=== PATIENT | male | born 1960 | race Caucasian/White ===

== ENCOUNTER 2020-03-24 07:52 | Outpatient (CLI) | payer OTHER, SELFPAY ==
--- NOTE | 2020-03-24 08:05 | CT_ITS ---
WS: [id number] CT CHEST TECHNIQUE: Noncontrast CT of the chest with coronal and sagittal reformatted images. CLINICAL INFORMATION: LUNG NODULE COMPARISON: CT chest and DLP: 881.[address] scans at [facility] use at least one of these dose optimization techniques: automat ed exposure control; mA and/or kV adjustment per patient size (includes targeted exams where dose is matched to clinical indication); or iterative reconstruction. FINDINGS: Mild chronic emphysematous changes. No acute pulmonary infiltrates. No consolidation or pleural fluid . Previously described pulmonary nodule in the left lower lobe appears to represent a mucous plug tod ay and is aerated centrally. This is unchanged in size compared to previous. Focal pleural thickening left lower lobe. No other suspicious pulmonary parenchymal opacities. No new nodules. No mediastinal or hilar lymphadenopathy. Normal thyroid gland. No axillary lymphadenopathy. Adrenal glands are normal. Partially visualized cystic lesion right hepatic lobe is enlarged compared to previous measuring 3.3 x 2.5 CM. This can be further evaluated with ultrasound. Hypertrophic bravo ges thoracic spine. CT/CT chest wo con [id number] IMPRESSION: 1. Previously described 8 mm pulmonary nodule left lower lobe actually represe nts a mucous plug which is centrally aerated today. 2. No new suspicious pulmonary parenchymal opacities. 3. Partially visualized cystic lesion right hepatic lobe measuring 2.5 x 3.3 c m has increased in size from previous. This can be further evaluated with ultra sound. This is only partially included. 4. Diffuse fatty infiltration of the liver. 5. No mediastinal or hilar lymphadenopathy.
== END 2020-03-24 07:53 | disposition home or self-care (01) ==
LOC: RADWPI 07:57
PROVIDERS: PCP Internal Medicine; Visit Provider Internal Medicine
DX: R91.1 Solitary pulmonary nodule (principal); K76.0 Fatty (change of) liver, not elsewhere classified; K76.9 Liver disease, unspecified
CPT/HCPCS: 71250

== ENCOUNTER 2020-04-08 08:48 | Outpatient (CLI) | payer OTHER, SELFPAY ==
--- NOTE | 2020-04-08 08:48 | US_ITS ---
WS: [id number] ULTRASOUND ABDOMEN LIMITED CLINICAL INFORMATION: LIVER CYST COMPARISON: CT 2013 and 03/24 2020 FINDINGS: Liver Size: Enlarged Craniocaudal length: 18.6 cm. Echogenicity: Fatty infiltration Surface nodularity: None. Mass (size and location): Right hepatic cysts the largest measuring 3.6 x 3.2 x 4.1 cm. Bile ducts Intrahepatic ducts: Normal. Common bile duct diameter: 1.8 cm. Gallbladder Normal. Gallstones: None. Gallbladder sludge: None. Gallbladder wall thickening: None. Pericholecystic fluid: None. Sonographic Potts sign: Absent. Pancreas Normal as visualized. Right kidney: Normal. Hydronephrosis: None. Size: 12.5 cm x 5.1 cm x 5.7 cm. Abdominal aorta and IVC Visualized portions are normal. Ascites: None. US/US liver [id number] IMPRESSION: 1. Hepatomegaly with diffuse fatty infiltration. 2. Right hepatic cysts the largest measuring 3.6 x 3.2 x 4.1 cm. 3. Gallbladder is normal. 4. Normal common bile duct. 5. No hydronephrosis in right kidney.
== END 2020-04-08 08:49 | disposition home or self-care (01) ==
LOC: RADOUTREAD 11:03
PROVIDERS: PCP Internal Medicine; Visit Provider Internal Medicine
DX: K76.89 Other specified diseases of liver (principal); R16.0 Hepatomegaly, not elsewhere classified; K76.0 Fatty (change of) liver, not elsewhere classified
CPT/HCPCS: 76705

== ENCOUNTER 2023-03-14 09:47 | Emergency (ER) | payer OTHER, SELFPAY ==
[2023-03-14 09:55] VITALS: BP 154/90; PULSE 93; RESP 16; TEMP 36.4; O2SAT 98; BMI 24.7
--- NOTE | 2023-03-14 10:04 | USCV_ITS ---
Willis Hawk Age: 62 Gender: M : 1960 Exam Date: 03/14/2023 10:24 Ordering Phys: Qiana Moeller MD Technologist: HYACINTH [place] [facility] [place]: Pain, Knot HISTORY: Lower extremity pain. Medial LE knot. Pt currently taking aspirin PROCEDURES: Venous duplex imaging was performed in only the left lower extremity. The following venous structures were evaluated: common femoral vein, profunda vein, proximal portion of the greater saphenous vein, superficial femoral vein, and the popliteal vein. In addition, the posterior tibial and peroneal trunk were evaluated. Serial compression, augmentation maneuvers, and spectral Doppler flow evaluation were performed. FINDINGS: Superficial thrombus noted in AOI that the pt directed. This thrombus appears to be within varicocities branching off of the Lt gsv at mid Lt LE CONCLUSIONS Superficial thrombus in the area of interest within varicosities. Varicosities branching from LEFT GSV in the calf Notified Dr Moeller at 1200 03/14/23 Lalo Burnett MD (Electronically Signed) Final Date: 14 March 2023 12:13 S
--- NOTE | 2023-03-14 10:06 | ED_ITS ---
HPI - Extremity Problem General: Chief complaint: Extremity Problem,Nontraumatic Stated complaint: left leg pains Time Seen by Provider: 03/14/23 09:54 Source: patient Mode of arrival: ambulatory Limitations: no limitations History of Present Illness: 62-year-old male states he had woke up t his morning noticed a little knot to his left lower leg along with some pain. Does have varicose veins he is concerned that he had a blood clot rates his pain a 2 out of 10 denies any chest pain or shortness of breath denies any fevers Associated symptoms: Deny chest pain, fever(s) or rash Review of Systems Const: Denies: fever(s), chills, body aches or change in appetite Eyes: Denies: blurry vision or eye discomfort ENMT: Denies: throat pain or dental pain Card: Denies: chest pain Resp: Denies: dyspnea GI: Denies: abdominal pain, nausea, vomiting or diarrhea Musc: Reports: extremity pain; Denies: neck pain or back pain Skin/Breast: Denies: rash Neuro: Denies: headache(s) Physical Exam Const: COMMON NORMALS: no acute distress, patient oriented x3 and healthy appearing HENMT: COMMON NORMALS: normocephalic and atraumatic HEAD & SCALP: normocephalic and atraumatic Neck/C-Spine: COMMON NORMALS: full ROM and supple Chest: COMMONS NORMALS: normal inspection of the chest Resp: COMMON NORMALS: normal respiratory effort Extremity: COMMON NORMALS: full ROM NARRATIVE EXTREMITY EXAM: Tenderness over left lower calf likely a superficial thrombophlebitis Neuro: COMMON NORMALS: patient oriented x3, moves all extremities and no focal motor deficits Psych: COMMON NORMALS: mental status grossly normal, Normal thought process present and cooperative THOUGHT PROCESS: Normal thought process present Skin: COMMON NORMALS: no rashes or lesions noted and no wounds GENERAL SKIN EXAM: no rashes or lesions noted Course Vital Signs: Vital signs: Vital Signs Temperature 97.6 F 03/14/23 09:55 Pulse Rate 94 03/14/23 10:13 Respiratory Rate 21 H 03/14/23 10:13 Blood Pressure 175/94 03/14/23 10:13 Pulse Oximetry 95 03/14/23 10:13 Oxygen Delivery Me thod Room Air 03/14/23 10:13 MDM - Extremity (Nontraumatic) Medical Decision Making Patient presents here with a superficial thrombophlebitis he is to do warm compresses take ibuprofen he is well-appearing here no DVT he is stable for discharge follow-up with PCP return if worsening Medical Records I reviewed the patient's medical records. All radiology interpretation(s) finalized by discharge Discharge Plan Discharge Patient Disposition: Home Clinical Impression: Superficial thrombophlebitis Qualifiers: Superficial thrombophlebitis-Involved body area: lower extremity Laterality: left Qualified Code(s): I80.02 - Phlebitis and thrombophlebitis of superficial vessels of left lower extremity Condition: Stable Discharge Orders: Discharge ED (Routine); Ordered 03/14/23 Ordered By: Qiana Moeller Referrals: Jose Luis Jimenez DO [Primary Care Provider] - 1-3 days Discharge Diet: Advance as tolerated Discharge Activity: Resume usual activity Patient Instructions: Superficial Thrombophlebitis (ED) Coding Level of Care Code ED Correctional Food Service Supervisor for Martina Ramirez
[2023-03-14 10:13] VITALS: BP 175/94; PULSE 94; RESP 21; O2SAT 95
[2023-03-14 10:56] VITALS: BP 166/92; PULSE 87; RESP 19; O2SAT 93
== END 2023-03-14 10:59 | disposition home or self-care (01) ==
PROVIDERS: Emergency Provider Emergency Medicine; PCP Internal Medicine
DX: I80.02 Phlebitis and thrombophlebitis of superficial vessels of left lower extremity (principal)
CPT/HCPCS: 93971; 99284

== ENCOUNTER 2023-11-20 18:54 | Emergency (ER) | payer MEDICARE, OTHER, SELFPAY ==
--- NOTE | 2023-11-20 18:53 | ECG_ITS ---
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 Measurements Intervals [place] Rate: 85 P: 68 [place]: 159 QRS: 66 QRSD: 85 T: 69 QT: 346 QTc: 412 Interpretive Statements SINUS RHYTHM MODERATE ST DEPRESSION [0.05+ mV ST DEPRESSION] Compared to ECG 07/11/2014 05:44:43 ST (T wave) deviation now present Electronically Signed On 11-21-2023 17:32:04 CDT by Farhan Ulloa M.D. [id number]
--- NOTE | 2023-11-20 18:56 | XRR_ITS ---
PROCEDURE INFORMATION: Exam: XR Chest Exam date and time: 11/20/2023 7:22 PM Age: 63 years old Clinical indication: Pain; Chest pressure; Prior surgery; Surgery date: 6+ months; Surgery type: Cardiac stents; Additional info: Cp TECHNIQUE: Imaging protocol: Radiologic exam of the chest. Views: 1 view. COMPARISON: CT chest con [id number] 03/24/2020 8:12 AM FINDINGS: Lungs: The lungs are adequately expanded. No focal consolidations or pulmonary edema. Pleural spaces: No pleural effusions or pneumothorax. Heart/Mediastinum: No cardiomegaly. Bones/joints: No acute fractures. XR/XR chest 1V portable [id number] IMPRESSION: No acute pulmonary disease.
[2023-11-20 18:57] VITALS: BP 143/85; PULSE 87; TEMP 36.6; O2SAT 99
[2023-11-20 19:16] LABS: Basophils # 0.1 10^3/uL (0.0-0.1); Basophils % 0.9 %; Eosinophils # 0.6 10^3/uL (0.0-0.8); Eosinophils % 7.2 %; Hematocrit 40.3 % (37-53); Lymphocytes # 2.5 10^3/uL (0.8-4.8); Lymphocytes % 29.5 %; Mean Corpuscular Hemoglobin 32.2 pg (27-33); Mean Corpuscular Volume 94.8 fl (82-101); Mean Platelet Volume 8.6 fL (7.4-10.4); Monocytes # 0.8 10^3/uL (0.2-0.9); Monocytes % 8.8 %; Neutrophils # 4.56 10^3/uL (1.8-7.7); Neutrophils % 53.2 %; Nucleated Red Blood Cells % 0 %; Platelet Count 292 10^3/cmm (157-399); Red Blood Count 4.25 10^6/uL (3.85-5.65); Red Cell Distribution Width 12.9 % (12.1-15.1); White Blood Count 8.57 10^3/uL (3.29-11.43)
[2023-11-20 19:28] LABS: INR 0.85 (0.8-1.2)
[2023-11-20 19:33] LABS: Alanine Aminotransferase 16 U/L (0-41); Albumin Level 4.4 g/dL (3.5-5.2); Alkaline Phosphatase 80 U/L (40-130); Anion Gap 16.4 (5-19); Aspartate Amino Transferase 21 U/L (0-40); Blood Urea Nitrogen 21 mg/dL (8-23); Calcium 9.4 mg/dL (8.5-10.5); Carbon Dioxide 26 mmol/L (22-29); Chloride 100 mmol/L (98-107); Globulin 2.4 g/dL (1.3-4.6); Glucose 177 mg/dL (65-115); Lipase 75 U/L (13-60); Osmolality Calculated 293 mOsm/kg (285-295); Potassium 4.4 mmol/L (3.5-5.1); Sodium 138 mmol/L (136-145); Total Bilirubin 0.2 mg/dL (0.15-1.2); Total Protein 6.8 g/dL (6.6-8.7)
[2023-11-20 19:55] LABS: Troponin(5th) Baseline 29 ng/L (0-15)
[2023-11-20 20:31] VITALS: BP 156/88; PULSE 72; RESP 17; O2SAT 97
[2023-11-20 21:01] VITALS: BP 148/80; PULSE 74; RESP 10; O2SAT 97
--- NOTE | 2023-11-20 21:08 | ECG_ITS ---
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 Measurements Intervals [place] Rate: 79 P: 64 [place]: 172 QRS: 57 QRSD: 85 T: 66 QT: 376 QTc: 432 Interpretive Statements SINUS RHYTHM Compared to ECG 11/20/2023 18:53:31 ST (T wave) deviation no longer present Electronically Signed On 11-21-2023 17:39:24 CDT by Farhan Ulloa M.D. [email or web address] va / crille [email or web address]/store/[id number]
--- NOTE | 2023-11-20 21:11 | ED_ITS ---
HPI - Chest Pain 2 General: Chief Complaint: Chest Pain Stated Complaint: chest pressure/burning Time Seen by Provider: 11/20/23 19:12 Source: patient Mode of arrival: ambulatory Limitations: no limitations History of Present Illness: 63-year-old male states over the last 2 nights he states that after eating he has had a burning sensation in his chest. He states that it usually last an hour he denies any pain currently. He had no vomiting denies any shortness of breath denies any nausea. He states he had reflux in the past does not take any meds for currently. Related Data Previous Rx's Medication Instructions Recorded pantoprazole 40 mg tablet,delayed 40 mg PO DAILY #60 tabs 11/20/23 release (Protonix) Allergies Allergy/AdvReac Type Severity Reaction Status Date / Time codeine Allergy ALGY-Hives Verified 11/20/23 19:01 Penicillins Allergy Unknown Verified 11/20/23 19:01 Physical Exam 2 Const: COMMON NORMALS: no acute distress, patient oriented x3 and healthy appearing HENMT: COMMON NORMALS: normocephalic and atraumatic HEAD & SCALP: n ormocephalic and atraumatic Eye: COMMON NORMALS: Equal, round and reactive pupils present and EOMs intact bilaterally PUPIL: Yes Equal, round and reactive pupils present Neck/C-Spine: COMMON NORMALS: full ROM and supple Chest: COMMONS NORMALS: normal inspection of the chest and normal palpation of entire chest wall Resp: COMMON NORMALS: normal respiratory effort, No retractions, No use of accessory muscles and clear to auscultation bilaterally AUSCULTATION: clear to auscultation bilaterally Cardio: COMMON NORMALS: regular rate, regular rhythm and No murmurs present (Cardio) RATE: regular rate RHYTHM: regular rhythm GI: COMMON NORMALS: Normal to inspection, nondistended, normoactive bowel sounds present, Soft to palpation, non-tender and no masses PALPATION: Yes Soft to palpation Extremity: COMMON NORMALS: normal to inspection and full ROM Neuro: COMMON NORMALS: patient oriented x3, moves all extremities and no focal motor deficits Psych: COMMON NORMALS: mental status grossly normal, Normal thought process present and cooperative THOUGHT PROCESS: Normal thought process present Skin: COMMON NORMALS: no rashes or lesions noted and no wounds GENERAL SKIN EXAM: no rashes or lesions noted Course 2 Vital Signs: Vital signs: Vital Signs Temperature 97.9 F 11/20/23 18:57 Pulse Rate 87 11/20/23 18:57 Blood Pressure 143/85 11/20/23 18:57 Pulse Oximetry 99 11/20/23 18:57 Oxygen Delivery Me thod Room Air 11/20/23 18:57 MDM - Chest Pain Medical Decision Making Patient presents here chest pains atypical in nature initial repeat troponin here negative he has no signs of ACS no signs of pulmonary embolism or aortic dissection is likely a gastritis as it is after eating we will start him on Protonix he is follow-up with PCP return if worsening he understands agrees to plan. Medical Records I reviewed the patient's medical records. Lab Data I reviewed the patient's lab results. 11/20/23 19:09 11/20/23 19:09 Radiology Impressions Chest X-Ray 11/20/23 18:56 IMPRESSION: No acute pulmonary disease. Laboratory Results WBC 8.57 10^3/uL (3.29-11.43) 11/20/23 19:09 RBC 4.25 10^6/uL (3.85-5.65) 11/20/23 19:09 Hgb 13.70 g/dL (11.27-16.99) 11/20/23 19:09 Hct 40.3 % (37-53) 11/20/23 19:09 MCV 94.8 fl (82-101) 11/20/23 19:09 MCH 32.2 pg (27-33) 11/20/23 19:09 MCHC 34.0 g/dL (30-55) 11/20/23 19:09 RDW 12.9 % (12.1-15.1) 11/20/23 19:09 Plt Count 292 10^3/cmm (157-399) 11/20/23 19:09 MPV 8.6 fL (7.4-10.4) 11/20/23 19:09 Neut % (Auto) 53.2 % 11/20/23 19:09 Lymph % (Auto) 29.5 % 11/20/23 19:09 [place] % (Auto) 8.8 % 11/20/23 19:09 Eos % (Auto) 7.2 % 11/20/23 19:09 Baso % (Auto) 0.9 % 11/20/23 19:09 Neut # (Auto) 4.56 10^3/uL (1.8-7.7) 11/20/23 19:09 Lymph # (Auto) 2.5 10^3/uL (0.8-4.8) 11/20/23 19:09 [place] # (Auto) 0.8 10^3/uL (0.2-0.9) 11/20/23 19:09 Eos # (Auto) 0.6 10^3/uL (0.0-0.8) 11/20/23 19:09 Baso # (Auto) 0.1 10^3/uL (0.0-0.1) 11/20/23 19:09 Nucleated RBC % (auto) 0 % 11/20/23 19:09 Nucleated RBCs # 0.0 /100WBC 11/20/23 19:09 PT 11.80 SECONDS (12.1-14.9) L 11/20/23 19:09 INR 0.85 (0.8-1.2) 11/20/23 19:09 Sodium 138 mmol/L (136-145) 11/20/23 19:09 Potassium 4.4 mmol/L (3.5-5.1) 11/20/23 19:09 Chloride 100 mmol/L (98-107) 11/20/23 19:09 Carbon Dioxide 26 mmol/L (22-29) 11/20/23 19:09 Anion Gap 16.4 (5-19) 11/20/23 19:09 BUN 21 mg/dL (8-23) 11/20/23 19:09 Creatinine 1.0 mg/dL (0.7-1.2) 11/20/23 19:09 GFR Calculation 75.0 mL/min (90-130) L 11/20/23 19:09 Glucose 177 mg/dL (65-115) H 11/20/23 19:09 Calculated Osmolality 293 mOsm/kg (285-295) 11/20/23 19:09 Calcium 9.4 mg/dL (8.5-10.5) 11/20/23 19:09 Total Bilirubin 0.2 mg/dL (0.15-1.2) 11/20/23 19:09 AST 21 U/L (0-40) 11/20/23 19:09 ALT 16 U/L (0-41) 11/20/23 19:09 Alkaline Phosphatase 80 U/L (40-130) 11/20/23 19:09 Troponin T Baseline 29 ng/L (0-15) H 11/20/23 19:09 Troponin T 120 Minute 34.38 ng/L (0-15) H 11/20/23 21:06 Delta Troponin T 5.38 ABS# (0-10) 11/20/23 21:06 Total Protein 6.8 g/dL (6.6-8.7) 11/20/23 19:09 Albumin 4.4 g/dL (3.5-5.2) 11/20/23 19:09 Globulin 2.4 g/dL (1.3-4.6) 11/20/23 19:09 Lipase 75 U/L (13-60) H 11/20/23 19:09 All radiology interpretation(s) finalized by discharge EKG Data EKG 1: I personally reviewed and interpreted this EKG as follows: EKG interpretation date: 11/20/23 EKG interpretation time: 21:08 Interpretation: nsr hr [address] elevation qrs 85 qtc 411 Discharge Plan Discharge Patient Disposition: Home Clinical Impression: Atypical chest pain Condition: Stable Prescriptions: New Protonix 40 mg tablet,delayed release (DR/EC) 40 mg PO DAILY Qty: 60 0RF Discharge Orders: Discharge ED (Routine); Ordered 11/20/23 Ordered By: Qiana Moeller Referrals: Jose Luis Jimenez DO [Primary Care Provider] - 4-7 days Discharge Diet: Advance as tolerated Discharge Activity: Resume usual activity Patient Instructions: Chest Pain (ED) Coding Level of Care Code ED Landing Scaler for Kelleng Ashley
[2023-11-20 21:30] LABS: Troponin 5 2HR 34.38 ng/L (0-15); Troponin 5 2HR Delta 5.38 ABS# (0-10)
[2023-11-20 21:31] VITALS: BP 119/83; PULSE 76; RESP 7; O2SAT 98
[2023-11-20] MEDS: pantoprazole DR 40 mg Tablet PO (21:46)
[2023-11-20 21:54] VITALS: BP 152/79; PULSE 76; RESP 9; O2SAT 95
== END 2023-11-20 21:53 | disposition home or self-care (01) ==
PROVIDERS: Emergency Provider Emergency Medicine; PCP Internal Medicine
DX: R07.89 Other chest pain (principal)
CPT/HCPCS: 36415; 71045; 80053; 83690; 84484; 85025; 85610; 93005; 99285

== ENCOUNTER 2023-11-21 06:17 | Inpatient (IN) | payer OTHER, MEDICARE, SELFPAY ==
[2023-11-21] VITALS (12 sets, daily range): BP systolic 111–157; BP diastolic 62–99; PULSE 70–94; RESP 12–23; TEMP 36.4–36.9; O2SAT 94–98; BMI 24.9; BMI 23.6
--- NOTE | 2023-11-21 06:23 | ECG_ITS ---
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 Measurements Intervals [place] Rate: 81 P: 63 SD: 162 QRS: 67 QRSD: 85 T: 71 QT: 362 QTc: 420 Interpretive Statements SINUS RHYTHM MINIMAL ST DEPRESSION [0.025+ mV ST DEPRESSION] Compared to ECG 11/20/2023 21:08:33 ST (T wave) deviation now present Electronically Signed On 11-21-2023 17:35:51 CDT by Farhan Ulloa M.D. [id number]
--- NOTE | 2023-11-21 06:25 | XRR_ITS ---
PROCEDURE INFORMATION: Exam: XR Chest Exam date and time: 11/21/2023 6:29 AM Age: 63 years old Clinical indication: Pain; Chest pressure; Prior surgery; Surgery date: 6+ months; Surgery type: Cardiac stents; Additional info: Dyspnea/cough TECHNIQUE: Imaging protocol: Radiologic exam of the chest. Views: 1 view. COMPARISON: CR (CHEST, ) 11/20/2023 7:22 PM FINDINGS: Lungs: Unremarkable. No consolidation. Pleural spaces: Unremarkable. No pleural effusion. No pneumothorax. Heart/Mediastinum: Unremarkable. No cardiomegaly. Bones/joints: Unremarkable. XR/XR chest 1V portable [id number] IMPRESSION: No acute abnormality.
--- NOTE | 2023-11-21 06:27 | ED_ITS ---
HPI - Chest Pain 2 General: Chief Complaint: Chest Pain Stated Complaint: chest burning and discomfort Time Seen by Provider: 11/21/23 06:25 History of Present Illness: 63-year-old male presents emergency room with chest discomfort. Patient has a known history of coronary disease states that about 7 years ago he had stents placed at our facility. Since that time has not had any cardiac evaluation. He was seen last night with complaints of chest discomfort. As I talk to him he describes it more from the epigastric chest discomfort gets worse when he eats. Patient had EKGs and troponins done. EKGs did not show any acute changes, troponins also trended normal and he was discharged home because of his characterizing of the pain is being worsened by eating and not activity -he was discharged home with a PPI. He reports that this morning he is having recurring symptoms again. There is no radiation of symptoms. Is not associated with shortness of breath or diaphoresis or activity. Began after he drank coffee but has not eaten anything this morning. Patient is a known diabetic type II. Has not been having anginal-like symptoms or shortness of breath associated with any exertional activities. Associated symptoms: Deny abdominal pain, dyspnea or fever(s) Related Data Home Medications Medication Instructions Recorded Confirmed atorvastatin 40 mg tablet 40 mg PO BEDTIME 11/21/23 11/21/23 glipizide 5 mg tablet, extended 5 mg PO DAILY 11/21/23 11/21/23 release 24 hr losartan 25 mg tablet 25 mg PO DAILY 11/21/23 11/21/23 metformin 1,000 mg tablet 1,000 mg PO BID 11/21/23 11/21/23 metoprolol tartrate 25 mg tablet 25 mg PO DAILY 11/21/23 11/21/23 Previous Rx's Medication Instructions Recorded pantoprazole 40 mg tablet,delayed 40 mg PO DAILY #60 tabs 11/20/23 release (Protonix) Allergies Allergy/AdvReac Type Severity Reaction Status Date / Time codeine Allergy ALGY-Hives Verified 11/20/23 19:01 Penicillins Allergy Unknown Verified 11/20/23 19:01 Review of Systems 2 Const: Denies: fever(s) or chills Card: Reports: chest pain Resp: Denies: dyspnea GI: Denies: abdominal pain : Denies: dysuria, urinary frequency or urinary urgency Musc: Denies: neck pain or back pain Skin/Breast: Denies: rash Physical Exam 2 Const: COMMON NORMALS: no acute distress GENERAL APPEARANCE: cooperative and comfortable ORIENTATION/CONSCIOUSNESS: Yes awake, Yes oriented to person, Yes oriented to place and Yes oriented to time HENMT: COMMON NORMALS: normocephalic, atraumatic and hearing grossly normal bilaterally HEAD & SCALP: normocephalic and atraumatic Resp: COMMON NORMALS: normal respiratory effort, No retractions, No use of accessory muscles and clear to auscultation bilaterally AUSCULTATION: clear to auscultation bilaterally Cardio: COMMON NORMALS: regular rate, regular rhythm and No murmurs present (Cardio) RATE: regular rate RHYTHM: regular rhythm GI: COMMON NORMALS: Soft to palpation and No hepatosplenomegaly present A USCULTATION: Yes normoactive bowel sounds PALPATION: Yes Soft to palpation, No Tenderness to palpation present (GI), No Guarding due to palpation present (GI) and Yes No hepatosplenomegaly present Extremity: COMMON NORMALS: normal to inspection, capillary refill normal, no clubbing, cyanosis or edema, no calf tenderness and no pedal edema Neuro: SENSORIUM/ORIENTATION: Yes oriented to person, Yes oriented to place and Yes oriented to time Skin: COMMON NORMALS: no rashes or lesions noted GENERAL SKIN EXAM: no rashes or lesions noted Course 2 Vital Signs: Vital signs: Vital Signs Temperature 97.6 F 11/21/23 06:20 Pulse Rate 84 11/21/23 09:46 Respiratory Rate 19 H 11/21/23 09:46 Blood Pressure 154/95 11/21/23 09:46 Pulse Oximetry 97 11/21/23 09:46 Oxygen Delivery Me thod Room Air 11/21/23 06:20 MDM - Chest Pain Medical Decision Making Patient has slight upward trend in his troponin from yesterday to today and even today was a little over +400 to allow delta [place]. He does have very subtle ST depression in V4 5 and 6 noted on today's EKG. There was a little bit of shoulder pressure on any aspect base EKGs as well as reviewed his previous cardiac cath and 1 stent is a try to put it in that had some dissection issues with a really get a stent across this and close this. He has not had any recent evaluation. Given his EKG changes symptoms and trending upward troponin with his risk factors we will go ahead and admit the patient. Discussed with hospitalist and with cardiology. Dr. Harkins recommended heparin and topical nitro. Orders written for admission. Discussed with the patient. Medical Records I reviewed the patient's medical records. Lab Data I reviewed the patient's lab results. 11/21/23 06:30 11/21/23 06:30 Radiology Impressions Chest X-Ray 11/21/23 06:25 IMPRESSION: No acute abnormality. Laboratory Results WBC 6.95 10^3/uL (3.29-11.43) 11/21/23 06:30 RBC 4.56 10^6/uL (3.85-5.65) 11/21/23 06:30 Hgb 14.50 g/dL (11.27-16.99) 11/21/23 06:30 Hct 42.6 % (37-53) 11/21/23 06:30 MCV 93.4 fl (82-101) 11/21/23 06:30 MCH 31.8 pg (27-33) 11/21/23 06:30 MCHC 34.0 g/dL (30-55) 11/21/23 06:30 RDW 12.8 % (12.1-15.1) 11/21/23 06:30 Plt Count 291 10^3/cmm (157-399) 11/21/23 06:30 MPV 8.7 fL (7.4-10.4) 11/21/23 06:30 Neut % (Auto) 55.0 % 11/21/23 06:30 Lymph % (Auto) 24.5 % 11/21/23 06:30 [place] % (Auto) 9.6 % 11/21/23 06:30 Eos % (Auto) 9.5 % 11/21/23 06:30 Baso % (Auto) 1.0 % 11/21/23 06:30 Neut # (Auto) 3.82 10^3/uL (1.8-7.7) 11/21/23 06:30 Lymph # (Auto) 1.7 10^3/uL (0.8-4.8) 11/21/23 06:30 [place] # (Auto) 0.7 10^3/uL (0.2-0.9) 11/21/23 06:30 Eos # (Auto) 0.7 10^3/uL (0.0-0.8) 11/21/23 06:30 Baso # (Auto) 0.1 10^3/uL (0.0-0.1) 11/21/23 06:30 Nucleated RBC % (auto) 0 % 11/21/23 06:30 Nucleated RBCs # 0.0 /100WBC 11/21/23 06:30 Sodium 136 mmol/L (136-145) 11/21/23 06:30 Potassium 5.0 mmol/L (3.5-5.1) 11/21/23 06:30 Chloride 100 mmol/L (98-107) 11/21/23 06:30 Carbon Dioxide 22 mmol/L (22-29) 11/21/23 06:30 Anion Gap 19.0 (5-19) 11/21/23 06:30 BUN 17 mg/dL (8-23) 11/21/23 06:30 Creatinine 1.1 mg/dL (0.7-1.2) 11/21/23 06:30 GFR Calculation 67.2 mL/min (90-130) L 11/21/23 06:30 Glucose 296 mg/dL (65-115) H 11/21/23 06:30 Calculated Osmolality 295 mOsm/kg (285-295) 11/21/23 06:30 Calcium 9.5 mg/dL (8.5-10.5) 11/21/23 06:30 Total Bilirubin 0.4 mg/dL (0.15-1.2) 11/21/23 06:30 AST 23 U/L (0-40) 11/21/23 06:30 ALT 18 U/L (0-41) 11/21/23 06:30 Alkaline Phosphatase 94 U/L (40-130) 11/21/23 06:30 Troponin T Baseline 39 ng/L (0-15) H 11/21/23 06:30 Troponin T 120 Minute 43.35 ng/L (0-15) H 11/21/23 08:13 Delta Troponin T 4.35 ABS# (0-10) 11/21/23 08:13 Total Protein 7.1 g/dL (6.6-8.7) 11/21/23 06:30 Albumin 4.9 g/dL (3.5-5.2) 11/21/23 06:30 Globulin 2.2 g/dL (1.3-4.6) 11/21/23 06:30 All radiology interpretation(s) finalized by discharge EKG Data EKG 1: Interpretation: 11/21/2023 6:23 AM Normal sinus rhythm rate of 81 MO interval 162 QTc [address] elevation, slight ST deppresion in v4-v6 (very subtle), normal axis Clincial Decision Support The following clinical decision support tools were used to aid in care of the patient HEART Score -> History: Slightly Suspicous, EKG: Normal, Age: 65 or more yrs, Risk Factors: >/=3 Risk Factors, Troponin: Baseline Trop 16-45 ng/L. Resulting HEART Score: 5. Discharge Plan Discharge Patient Disposition: Admitted As Inpatient Admit Provider: Tj Isbell Clinical Impression: Atypical chest pain, Elevated troponin I level, Diabetes mellitus Condition: Stable Coding Level of Care Code ED Fios Line Installer for Martina Ramirez
[2023-11-21 06:35] LABS: Basophils # 0.1 10^3/uL (0.0-0.1); Eosinophils # 0.7 10^3/uL (0.0-0.8); Eosinophils % 9.5 %; Hematocrit 42.6 % (37-53); Lymphocytes # 1.7 10^3/uL (0.8-4.8); Lymphocytes % 24.5 %; Mean Corpuscular Hemoglobin 31.8 pg (27-33); Mean Corpuscular Volume 93.4 fl (82-101); Mean Platelet Volume 8.7 fL (7.4-10.4); Monocytes # 0.7 10^3/uL (0.2-0.9); Monocytes % 9.6 %; Neutrophils # 3.82 10^3/uL (1.8-7.7); Nucleated Red Blood Cells % 0 %; Platelet Count 291 10^3/cmm (157-399); Red Blood Count 4.56 10^6/uL (3.85-5.65); Red Cell Distribution Width 12.8 % (12.1-15.1); White Blood Count 6.95 10^3/uL (3.29-11.43)
[2023-11-21] MEDS: aspirin 81 mg Chew Tablet 324 MG PO (06:36)
[2023-11-21] MEDS: lidocaine 2% viscous 15 ML, aluminum-mag hydrox-simethicon 30 ML, sucralfate oral liq 1 GM PO (06:55)
[2023-11-21 06:58] LABS: Alanine Aminotransferase 18 U/L (0-41); Albumin Level 4.9 g/dL (3.5-5.2); Alkaline Phosphatase 94 U/L (40-130); Aspartate Amino Transferase 23 U/L (0-40); Blood Urea Nitrogen 17 mg/dL (8-23); Calcium 9.5 mg/dL (8.5-10.5); Carbon Dioxide 22 mmol/L (22-29); Chloride 100 mmol/L (98-107); Creatinine Clr Calc Pharmacy 77.8708; Globulin 2.2 g/dL (1.3-4.6); Glomerular Filtration Rate 67.2 mL/min (90-130); Glucose 296 mg/dL (65-115); Osmolality Calculated 295 mOsm/kg (285-295); Sodium 136 mmol/L (136-145); Total Bilirubin 0.4 mg/dL (0.15-1.2); Total Protein 7.1 g/dL (6.6-8.7)
[2023-11-21 06:59] LABS: Troponin(5th) Baseline 39 ng/L (0-15)
--- NOTE | 2023-11-21 07:18 | PC.PHAR ---
pt states takes meds at 8am and 8pm, last taken yesterday 11/19/33 at 8pm. Pt states needs something for stress.
--- NOTE | 2023-11-21 08:25 | ECG_ITS ---
[facility] Test Date: 2023-11-21 Pat Name: Willis Hawk Department: Room: Gender: Male Forensic Medical Examiner: : 1960 Requested By: Faisal Demarco Order Number: [id number] Thien MD: Farhan Ulloa M.D. Measurements Intervals [place] Rate: 79 P: 60 VT: 178 QRS: 58 QRSD: 76 T: 66 QT: 369 QTc: 425 Interpretive Statements SINUS RHYTHM Compared to ECG 11/21/2023 06:23:31 ST (T wave) deviation no longer present Electronically Signed On 11-21-2023 17:43:47 CDT by Farhan Ulloa M.D. [id number]
[2023-11-21 08:35] LABS: Troponin 5 2HR 43.35 ng/L (0-15); Troponin 5 2HR Delta 4.35 ABS# (0-10)
--- NOTE | 2023-11-21 11:14 | USCV_ITS ---
Willis Hawk Age: 63 Gender: M : 1960 Exam Date: 11/21/2023 12:06 Ordering Phys: Tj Isbell MD Technologist: [place] [facility] [place]: cp BP: 134 / 76 HR: 76 Rhythm: Sinus Technical Quality: Adequate MEASUREMENTS (Male / Female) Normal Values 2D ECHO LV Diastolic Diameter PLAX 4.7 cm 4.2 - 5.9 / 3.9 - 5.3 cm IVS Diastolic Thickness 1.0 cm 0.6 - 1.0 / 0.6 - 0.9 cm IVS Systolic Thickness 1.1 cm LVPW Diastolic Thickness 1.1 cm 0.6 - 1.0 / 0.6 - 0.9 cm LVPW Systolic Thickness 1.6 cm LVOT Diameter 1.9 cm LV Ejection Fraction 2D Teich 63.7 % LV Ejection Fraction MOD 4C 61.2 % LV Ejection Fraction MOD 2C 62.4 % LV Ejection Fraction 2C AL 62.7 % LA Diameter 3.4 cm RA Systolic Volume 4C AL 33.7 ml RA Systolic Volume 4C MOD 33.0 ml LA Sys Volume AL 38.1 cm cubed LA Sys Volume Index AL 18.6 cm cubed/m squared Aorta at Sinotubular Diameter 2.3 cm M-MODE LA Ao Ratio MM 1.1 AV Cusp Separation MM 1.9 cm DOPPLER MV Peak Velocity 86.0 cm/s MV Area PHT 3.0 cm squared Mitral E to A Ratio 0.9 TR Peak Velocity 123.0 cm/s TR Peak Gradient 6.1 mmHg TV Peak E Velocity 177.0 cm/s Right Atrial Pressure 3.0 mmHg Pulmonary Artery Systolic Pressu 9.1 mmHg PV Peak Velocity 82.0 cm/s FINDINGS Left Ventricle Left ventricle is normal in size. LV systolic function is normal with EF of 55 to 60%. No regional wall motion abnormalities are seen. Grade 1 diastolic dysfunction Right Ventricle Normal in size and function Right Atrium Normal in size Left Atrium Normal in size Mitral Valve Possible prolapse of posterior mitral valve leaflet. Trace mitral regurgitation. Aortic Valve Structurally normal aortic valve. Doppler exam of aortic valve not performed. Tricuspid Valve Mild tricuspid regurgitation. Insufficient TR jet to evaluate RVSP. Pulmonic Valve Not well visualized Pericardium Normal Aorta Normal in size IVC Not well visualized CONCLUSIONS LV systolic function is normal with EF of 55 to 60%. Grade 1 diastolic dysfunction. Trace mitral regurgitation. Mild tricuspid regurgitation Compared to prior echocardiogram from 2013, no significant changes are seen Toni Phelps MD (Electronically Signed) Final Date: 21 November 2023 16:24 S
--- NOTE | 2023-11-21 11:17 | P.HP_ITS ---
Providers/Chief Complaint 2 Admitting Physician: Tj Isbell MD Primary Care Provider: Jose Luis Jimenez DO Chief Complaint: chest burning and discomfort History of Present Illness Willis Hawk is a 63 year old male with history of coronary artery disease and stenting who has been to the emergency department twice in the last 24 hours with complaints of chest discomfort, burning, epigastric to lower chest. Reports it does not radiate, no shortness of breath, no sweating, no palpitations. He reports both instances have occurred somewhat around eating. He has not really had any exertional symptoms. He has received 5 stents total, divided between 2013 and 2014. Symptoms then with significant shortness of breath. He reports he is still having some discomfort as we speak although it is very minor. He denies any fever, blood in his stool, vomiting, dysphagia. He does smoke. Review of Systems 2 General: Reports: 10 or more systems reviewed and unremarkable except in HPI and below Card: Reports: chest pain Resp: Denies: dyspnea GI: Denies: abdominal pain, nausea, vomiting or hematochezia Medications/Allergies Home Medications Medication Instructions Recorded Confirmed Last Taken Type pantoprazole 40 mg tablet,delayed 40 mg PO DAILY #60 tabs 11/20/23 11/21/23 11/20/23 Rx release (Protonix) atorvastatin 40 mg tablet 40 mg PO BEDTIME 11/21/23 11/21/23 11/20/23 History glipizide 5 mg tablet, extended 5 mg PO DAILY 11/21/23 11/21/23 11/20/23 History release 24 hr losartan 25 mg tablet 25 mg PO DAILY 11/21/23 11/21/23 11/20/23 History metformin 1,000 mg tablet 1,000 mg PO BID 11/21/23 11/21/23 11/20/23 History metoprolol tartrate 25 mg tablet 25 mg PO DAILY 11/21/23 11/21/23 11/20/23 History Allergies Allergy/AdvReac Type Severity Reaction Status Date / Time codeine Allergy ALGY-Hives Verified 11/20/23 19:01 Penicillins Allergy Unknown Verified 11/20/23 19:01 PFSH Acute 2 PFSH: Medical History (Updated 11/21/23 @ 11:24 by Tj Isbell MD) Hypertension GERD (gastroesophageal reflux disease) Hyperlipidemia Coronary artery disease Surgical History (Updated 11/21/23 @ 11:20 by Tj Isbell MD) History of coronary angioplasty with insertion of stent Family History (Updated 11/21/23 @ 11:20 by Tj Isbell MD) Other Diabetes Hypertension Social History (Updated 11/21/23 @ 11:21 by Tj Isbell MD) Smoking and tobacco/nicotine status: current every day tobacco/nicotine user Alcohol intake: current Alcohol intake frequency: 0-2 Drinks per Day Vitals/I&O/Wt Last Vital Signs Temp 97.6 F 11/21/23 06:20 Pulse 84 11/21/23 09:46 Resp 19 H 11/21/23 09:46 BP 154/95 11/21/23 09:46 Pulse Ox 97 11/21/23 09:46 O2 Del Method Room Air 11/21/23 06:20 Weight last 48 hrs Weight 81.42 kg Weight 85.729 kg Physical Exam 2 Narrative: General exam is white male, no distress, complaining of minor chest discomfort HEENT: Atraumatic normocephalic. Oropharynx is clear Neck is supple no lymphadenopathy thyromegaly Cardiovascular regular rate and rhythm without murmur Lungs clear Abdomen is soft, nontender, no hepatosplenomegaly Extremities no sinus clubbing edema exam is deferred Skin no rash Neuro no obvious focal deficits Data 11/21/23 06:30 11/21/23 06:30 Other Labs: EKG demonstrates sinus rhythm, normal axis, nonspecific ST-T wave flattening inferior and lateral. Rate about 80. This is by my interpretation EKG no infiltrate by my read LFTs normal Troponin 39 and 43. Yesterday they were 29 and 34 Lipase slightly elevated at 75 on the third. I will order another one from today Calcium and albumin are normal I have ordered a TSH A&P Assessment and plan (1) Atypical chest pain: Patient with somewhat atypical description of the pain, but concerned with increasing troponin. He still has some discomfort present. Cardiac etiology is certainly the most life-threatening concern. Heparinize Aspirin was given, continue Nitrates Statin Beta-gerardo Cardiology consult Check TSH Echocardiogram (2) Elevated troponin I level: See above. Troponins increased from previous ER visit (3) Diabetes mellitus: Sliding scale insulin Consistent carb diet when started (4) Coronary artery disease: Patient with history of coronary stenting in 2013 and 15 Continue statin, beta-gerardo, aspirin Plan History of reflux with some atypical symptoms and a slightly elevated lipase. Repeat lipase. Initiate Protonix 40 mg every 12 hours. Full code Heparin will suffice for DVT prophylaxis along with SCDs Attestations 2 Medical Necessity Statement*: Will need less than 2 midnight stay for evaluation and treatment of chest discomfort Diagnoses Atypical chest pain R07.89 Elevated troponin I level R79.89 Diabetes mellitus E11.9 Coronary artery disease I25.10 Time Spent (min) 34
[2023-11-21 11:49] LABS: Glucose Point of Care 187 mg/dL (70-110)
[2023-11-21] MEDS: heparin 5,000 unit/mL INJ 1 mL IVP (11:55)
[2023-11-21] MEDS: heparin drip 25,000 UNIT/500 ML PREMIX 23 UNIT IV (11:57)
[2023-11-21] MEDS: sodium chloride 0.9% 1,000 ML 100 ML IV ×2 (12:01→22:14)
[2023-11-21] MEDS: pantoprazole 40 mg SDV IVP ×2 (12:01→23:26)
[2023-11-21] MEDS: nitroglycerin 1 gm/inch oint Pkt 0.5 INCH TOPICAL ×3 (12:20→23:27)
[2023-11-21 12:21] LABS: Lipase 53 U/L (13-60); Thyroid Stimulating Hormone 0.97 uIU/mL (0.27-4.20)
--- NOTE | 2023-11-21 12:21 | P.CONIM_ITS ---
Providers/Reason For Consult 2 Consulting Physician/Specialty*: Cardiology Reason for Consult*: Chest pain with abnormal cardiac markers Requesting Physician: Dr. Tj Isbell Attending Physician: Tj Isbell MD Primary Care Provider: Jose Luis Jimenez DO History of Present Illness History of Present Illness Willis Hawk is a 63 year old male past medical history significant for coronary artery disease history of prior multiple stents before 2014, he is admitted with worsening of heartburn GERD like feeling sometime after eating occasionally at rest he is not very sure of exertional component but think that this has been increasing in frequency and duration, he decided to come to the ER initial presentation troponin bumped up to 39, patient continues to have off-and-on chest pressure squeezing which is now better and improved. Review of Systems 2 General: Reports: 10 or more systems reviewed and unremarkable except in HPI and below Const: Denies: fever(s) or chills Card: Reports: chest pain Resp: Denies: dyspnea GI: Denies: abdominal pain, nausea, vomiting or hematochezia : Denies: dysuria, urinary frequency or urinary urgency Musc: Denies: neck pain or back pain Skin/Breast: Denies: rash Medications/Allergies Home Medications Medication Instructions Recorded Confirmed Last Taken Type pantoprazole 40 mg tablet,delayed 40 mg PO DAILY #60 tabs 11/20/23 11/21/23 11/20/23 Rx release (Protonix) atorvastatin 40 mg tablet 40 mg PO BEDTIME 11/21/23 11/21/23 11/20/23 History glipizide 5 mg tablet, extended 5 mg PO DAILY 11/21/23 11/21/23 11/20/23 History release 24 hr losartan 25 mg tablet 25 mg PO DAILY 11/21/23 11/21/23 11/20/23 History metformin 1,000 mg tablet 1,000 mg PO BID 11/21/23 11/21/23 11/20/23 History metoprolol tartrate 25 mg tablet 25 mg PO DAILY 11/21/23 11/21/23 11/20/23 History Allergies Allergy/AdvReac Type Severity Reaction Status Date / Time codeine Allergy ALGY-Hives Verified 11/20/23 19:01 Penicillins Allergy Unknown Verified 11/20/23 19:01 Current Medications Generic Name Dose Route Start Last Admin Trade Name Freq PRN Reason Stop Dose Admin Heparin Sodium/Sodium Chloride 25,000 unit in 500 mls @ 0 mls/hr 11/21/23 10:30 11/21/23 11:57 Heparin Drip IV 13.41 unit/kg/hr CONT LAYA 23 mls/hr Administration Protocol Per Protocol Sodium Chloride 1,000 mls @ 100 mls/hr 11/21/23 10:47 11/21/23 12:01 Sodium Chloride 0.9% IV 100 mls/hr .Q10H LAYA Administration Insulin Human Lispro 0 unit 11/21/23 12:00 11/21/23 12:05 Insulin Lispro 100 Unit/1 Ml SUBCUT Not Given WM&BEDTIME LAYA Protocol Nitroglycerin 0.5 inch 11/21/23 10:30 11/21/23 12:20 Nitroglycerin 1 Gm/Inch Oint Pkt TOPICAL 0.5 inch Q6H LAYA Administration Pantoprazole Sodium 40 mg 11/21/23 11:15 11/21/23 12:01 Pantoprazole 40 Mg Sdv IVP 40 mg Q12H LAYA Administration PFSH Acute 2 PFSH: Medical History (Updated 11/21/23 @ 19:19 by Arnaldo Randhawa MD) Hypertension GERD (gastroesophageal reflux disease) Hyperlipidemia Coronary artery disease Surgical History (Updated 11/21/23 @ 11:20 by Tj Isbell MD) History of coronary angioplasty with insertion of stent Family History (Updated 11/21/23 @ 11:20 by Tj Isbell MD) Other Diabetes Hypertension Social History (Updated 11/21/23 @ 11:21 by Tj Isbell MD) Smoking and tobacco/nicotine status: current every day tobacco/nicotine user Alcohol intake: current Alcohol intake frequency: 0-2 Drinks per Day Vitals/I&O/Wt Last Vital Signs Temp 97.7 F 11/21/23 11:53 Pulse 70 11/21/23 11:53 Resp 17 11/21/23 11:53 BP 151/81 11/21/23 11:53 Pulse Ox 97 11/21/23 11:53 O2 Del Method Room Air 11/21/23 11:53 Weight last 48 hrs Weight 179 lb 8 oz Weight 189 lb Physical Exam 2 Const: OTHER: GENERAL: Patient is alert, awake and oriented x3. HEART: Regular S1 and S2. No murmur, rub or gallop. LUNGS: Clear to auscultate bilaterally. ABDOMEN: Soft, nontender and nondistended. Positive bowel sounds. No guarding, rebound or tenderness. CENTRAL NERVOUS SYSTEM: Grossly nonfocal. EXTREMITIES: Lower extremities without edema bilaterally. Pulses palpable in the lower extremities, both dorsalis pedis and posterior tibial. Data 11/21/23 06:30 11/21/23 06:30 A&P Assessment and plan (1) Elevated troponin I level: Elevated cardiac markers in a patient with prior history of multiple stents no with chest pain/heartburn which has increased in frequency and duration with possible suggestive of unstable angina however cannot rule out severe gastritis since patient is high risk for acute coronary syndrome and because of the fact he feels pretty sick and think his symptoms are similar to when he had his stents therefore we will proceed with left heart catheterization. For now continue beta-gerardo aspirin statin and heparin, add Protonix (2) Coronary artery disease: Worsening of chest pain with increased frequency duration as above could be unstable angina therefore we will anticoagulate the patient monitor with EKG and on telemetry. Will keep him n.p.o. proceed with left heart catheterization tomorrow or early if shows hemodynamic instability Qualifiers: Coronary Disease-Associated Artery/Lesion type: [place] artery [place] vs. transplanted heart: [place] heart Associated angina: with unspecified form of angina Qualified Code(s): I25.119 - Atherosclerotic heart disease of [place] coronary artery with unspecified angina pectoris (3) Diabetes mellitus: As per medicine Coding Level of Care Code Acute Code for [facility] Fwd Diagnoses Elevated troponin I level R79.89 Coronary artery disease involving [place] coronary artery of [place] heart with angina pectoris I25.119 Coronary Disease-Associated Artery/Lesion type: [place] artery [place] vs. transplanted heart: [place] heart Associated angina: with unspecified form of angina Diabetes mellitus E11.9
--- NOTE | 2023-11-21 12:25 | ECG_ITS ---
[facility] Test Date: 2023-11-21 Pat Name: Willis Hawk Department: Room: 276 Gender: Male Special Delivery Clerk: : 1960 Requested By: Faisal Demarco Order Number: [id number] Thien MD: Farhan Ulloa M.D. Measurements Intervals [place] Rate: 86 P: 60 TX: 169 QRS: 44 QRSD: 80 T: 64 QT: 372 QTc: 446 Interpretive Statements SINUS RHYTHM MINIMAL ST DEPRESSION [0.025+ mV ST DEPRESSION] Compared to ECG 11/21/2023 08:20:38 ST (T wave) deviation now present Electronically Signed On 11-21-2023 17:44:45 CDT by Farhan Ulloa M.D. [id number]
[2023-11-21 13:44] LABS: Troponin 5 6HR 49.97 ng/L (0-15); Troponin 5 6HR Delta 10.97 ng/L (0-12)
[2023-11-21 16:44] LABS: Glucose Point of Care 244 mg/dL (70-110)
[2023-11-21] MEDS: atorvastatin 40 mg Tablet PO (20:42)
[2023-11-21 21:23] LABS: Glucose Point of Care 175 mg/dL (70-110)
[2023-11-22] VITALS (22 sets, daily range): BP systolic 109–163; BP diastolic 55–91; PULSE 60–76; RESP 14–20; TEMP 36.5–36.8; O2SAT 94–99
[2023-11-22 03:07] LABS: Basophils # 0.1 10^3/uL (0.0-0.1); Eosinophils # 0.5 10^3/uL (0.0-0.8); Eosinophils % 6.8 %; Hematocrit 36.2 % (37-53); Lymphocytes # 1.7 10^3/uL (0.8-4.8); Lymphocytes % 21.7 %; Mean Corpuscular HGB Conc 33.7 g/dL (30-55); Mean Corpuscular Hemoglobin 31.6 pg (27-33); Mean Corpuscular Volume 93.8 fl (82-101); Mean Platelet Volume 8.6 fL (7.4-10.4); Monocytes # 0.7 10^3/uL (0.2-0.9); Monocytes % 9.1 %; Neutrophils # 4.87 10^3/uL (1.8-7.7); Nucleated Red Blood Cells % 0 %; Platelet Count 240 10^3/cmm (157-399); Red Blood Count 3.86 10^6/uL (3.85-5.65); Red Cell Distribution Width 12.6 % (12.1-15.1); White Blood Count 7.98 10^3/uL (3.29-11.43)
[2023-11-22 03:26] LABS: Alanine Aminotransferase 10 U/L (0-41); Albumin Level 3.7 g/dL (3.5-5.2); Alkaline Phosphatase 69 U/L (40-130); Anion Gap 14.9 (5-19); Aspartate Amino Transferase 19 U/L (0-40); Blood Urea Nitrogen 18 mg/dL (8-23); Calcium 8.2 mg/dL (8.5-10.5); Carbon Dioxide 24 mmol/L (22-29); Chloride 105 mmol/L (98-107); Creatinine Clr Calc Pharmacy 76.2386; Globulin 1.9 g/dL (1.3-4.6); Glomerular Filtration Rate 67.2 mL/min (90-130); Glucose 181 mg/dL (65-115); Magnesium 1.9 mg/dL (1.7-2.3); Osmolality Calculated 294 mOsm/kg (285-295); Potassium 4.9 mmol/L (3.5-5.1); Sodium 139 mmol/L (136-145); Total Bilirubin 0.2 mg/dL (0.15-1.2); Total Protein 5.6 g/dL (6.6-8.7)
[2023-11-22 04:01] LABS: Partial Thromboplastin Time 155.7 SECONDS (23.9-36.7)
--- NOTE | 2023-11-22 04:28 | PC.NURSE ---
Ptt greater than 150. Contacted Dr. Perez, given orders to pause Heparin and recheck PTT in 4 hours. ]
[2023-11-22] MEDS: nitroglycerin 1 gm/inch oint Pkt 0.5 INCH TOPICAL (05:03)
[2023-11-22 06:39] LABS: Glucose Point of Care 148 mg/dL (70-110)
--- NOTE | 2023-11-22 08:09 | W.PM.OPSUD ---
Surgery/Procedure H&P Update DATE OF PROCEDURE: November 22, 2023 DATE H&P PERFORMED: 11/22/23 PREOP DIAGNOSIS: Chest pain suspicious for unstable angina, CAD PLANNED PROCEDURE: Operation Date: 11/22/23 09:15 Proposed Procedures p Cardiac Catheterization(Left) - Arnaldo Randhawa MD PATIENT REASSESSED PRIOR TO SEDATION, WITH NO CHANGE NOTED: Yes PHYSICAL EXAM: alert, oriented x 3, clear to auscultation bilaterally, regular rate & rhythm and operative site marked AIRWAY EVAL/ANESTHESIA PLAN: ASA III, Monitored Anesthesia, Local Anesthesia, Risks, benefits & alternatives of sedation and/or procedure discussed and Patient agrees to continue as planned ADDITIONAL INFORMATION: Mallampati 2
--- NOTE | 2023-11-22 09:00 | XACV_ITS ---
Exam Room: 2 Ht: 185 cm Wt: 81 kg BSA: 2.05 m2 Gender: Male : 1960 Any Known Allergies: Penicillins Exam Priority: Routine Procedure(s): Procedure Description: Diagnostic procedure Procedure Description: Left Heart Catheterization Procedure Description: Left ventriculography Procedure Description: Miscellaneous Procedure Description: ACT Procedure Description: Coronary Angiography Procedure Description: Pressure Wire Sydnee OSHEA; Diagnostic Cath Status: Urgent Diagnostic Findings * Left Main has no disease. * Mid Left Anterior Descending: significant 80% stenosis, FADI: 3 flow. * Mid Left Anterior Descending: luminal irregularities 20% stenosis, FADI: 0 flow. Patent previously placed mid LAD stent with 20 to 30% in-stent restenosis. * Distal Left Anterior Descending: moderate 50% stenosis, FADI: 3 flow. * Distal Left Anterior Descending: total occlusion, FADI: 3 flow. * Mid Right Coronary Artery: severe 90% stenosis, FADI: 3 flow. * Mid Circumflex: significant 80% stenosis, FADI: 3 flow. * Ramus: obstructive 70% stenosis, FADI: 3 flow. * First Obtuse Marginal Branch Segment: subtotal occlusion, FADI: 3 flow. * Coronary angiography shows right dominance. Interventional Findings * Mid Left Anterior Descendin% stenosis treated with a Drug Eluting Stent. 0% residual stenosis, FADI: 3 flow. Conclusions 1. There is total occlusion coronary artery disease with three vessel disease. 2. Normal left ventricular systolic function. Ejection fraction of 55%. 3. Mid Left Anterior Descending was treated with a Drug Eluting Stent. Recommendations * Continue current medical management and risk factor modification. * Patient will be referred for CABG. * Continue aspirin statin beta-gerardo, optimal medical management, consider CABG. Diagnostic RX Recommendation: CABG LV EDP: 27 mmHg Ventriculography Ejection Fraction: 55.0 % Left Ventriculography Findings: * Moderately elevated left ventricular diastolic pressure. * Normal left ventricle ejection fraction 55%. Pressures Phase:Rest AO : 137 / 81 ( 107 ) @ 9:24:00 AM 120 / 90 ( 106 ) @ 9:25:00 AM 123 / 88 ( 105 ) @ 9:27:00 AM 119 / 86 ( 103 ) @ 9:31:00 AM 132 / 84 ( 107 ) @ 9:38:00 AM 159 / 89 ( 118 ) @ 10:00:00 AM 143 / 79 ( 109 ) @ 10:07:00 AM 143 / 78 ( 108 ) @ 10:07:00 AM LV : 154 / 6 / 34 @ 10:06:00 AM 148 / -2 / 25 @ 10:06:00 AM 136 / 0 / 23 @ 10:07:00 AM 138 / 0 / 24 @ 10:07:00 AM Valves Phase:DefaultPhase AV : 0.0 @ 9:13:56 AM AV Mean Gradient: 0.0 @ 9:13:56 AM Clinical Evaluation EBL: 5mL-10mL Procedural Details Procedure Consent Obtained. Pre-Procedure Time Out. Identified patient by full name and date of as verbalized by the patient/guarantor. Does the consent match the physician's order: Yes. Inpatient/Outpatient History & Physical on Chart: Yes. Accurate & Complete Informed Consent: Yes. If H&P is completed, is and addenduem needed: No; If yes, is the addendum complete: N/A. Visualize and Verify Site with Patient/Guarantor: N/A. Relevant Radiology Images available: Yes. Pre-op teaching completed and patient verbalized understanding. The risks, benefits, and alternatives of sedation and/or procedure were discussed by physician. The patient agrees to continue. Procedure started. Physician arrived. Current Diagnosis : Chest Pain. CSHA Clinical Fraility Score: 3: Managing Well. Wrapper Selector Indications: Other. Chest Pain Symptom Assessment: Atypical Angina. Correct patient, site and procedure confirmed by cath team. Current diagnosis: Chest Pain. PERRLA. Strong, equal hand cloud subject matter expert bilaterally. Lungs clear x 5 lobes. IV Site on Arrival: 18 gauge in the right anticubital. IV Fluids: 0.9% NaCl at KVO. 0 mL infused prior to cath lab radiological technologist. Oxygen started at 2liters/min via nasal canula. right groin was prepped with chloroprep then draped in the usual sterile fashion. right radial was prepped with chloroprep then draped in the usual sterile fashion. Baseline sample Acquired. HR: 67 BPM. Lidocaine 1% infiltrated to the right radial. Arterial access obtained. A 5 b[place] TIG catheter in over wire. ACT drawn. Results 134 seconds. Therapeutic limits - pre-heparin administration 90-150 seconds and monitoring heparin during a vascular procedure >250 seconds. Multiple views taken of left coronary artery. Catheter redirected to the RCA. Multiple views taken of right coronary artery. Physician review of cine films. Catheter removed over the exchange wire. 6 bahamian XB 3.5 guide catheter was inserted over the wire. ACT drawn. Results 233 seconds. Therapeutic limits - pre-heparin administration 90-150 seconds and monitoring heparin during a vascular procedure >250 seconds. IFR guidewire was advanced through the guide catheter to lesion in the mid LAD. Wire out. Guide repositioned. IFR guidewire was advanced through the guide catheter to lesion in the mid LAD. Wire out. Guide repositioned. IFR guidewire was advanced through the guide catheter to lesion in the mid LAD. IFR Results: 0.86. Wire out. Guide catheter out. A 5 bahamian Angled Pig catheter in over wire. EDP Sample taken: LV 154/6,34; HR: 72 BPM; SpO2: 100%. EDP Sample taken: LV 148/-3,25; HR: 73 BPM; SpO2: 99%. LV gram performed in LOPEZ @ 10 mL/second for a total of 20 mL. EDP Sample taken: LV 136/-1,23; HR: 72 BPM; SpO2: 99%. Pullback taken: LV 138/0,24; AO 143/79(109); Mean: 0mmHg, Peak to Peak: 0mmHg, SEP: 7sec/min; HR: 74 BPM; SpO2: 98%. Catheter removed over the exchange wire. Vital chart was stopped. Post Procedure: Pulses reassessed and unchanged. PERRLA. Strong, equal hand cloud subject matter expert bilaterally. No VTE prophylaxis required. Medication's Wasted: Lidocaine 1% = 18 mL. Medication's Wasted: Nitro = 49.8 mcg. Medication's Wasted: Heparin = 4000 units. Total IV fluids: 125 mL. Post-op diagnosis: CAD. Complications: None. Estimated blood loss: 5mL-10mL. Responsiveness - Normal response to verbal stimuli; alert and oriented, PERRLA. Airway - Unaffected, no intervention required; spontaneous ventilation. Circulation: W/N/L, pulses unchanged. Nausea/Vomiting: No. Procedure completed. Patient transferred by bed to CPRU. Access Site Site: Right Radial artery Sheath Size: 6 Fr Hemostasis Success: Unsuccessful Procedure Medications Start: 8:06 AM Stop: 8:06 AM Medication: Benadryl Amount: 50 mg Route: I.V. Start: 8:08 AM Stop: 8:08 AM Medication: Aspirin Amount: 325 mg Route: P.O. Start: 8:11 AM Stop: 8:11 AM Medication: Versed Amount: 1 mg Route: I.V. Start: 8:11 AM Stop: 8:11 AM Medication: Fentanyl Amount: 50 mcg Route: I.V. Start: 8:19 AM Stop: 8:19 AM Medication: Nitrogylcerin Amount: 200 mcg Route: I.A. Start: 8:25 AM Stop: 8:25 AM Medication: Heparin Amount: 5000 units Route: I.V. Start: 8:34 AM Stop: 8:34 AM Medication: Versed Amount: 1 mg Route: I.V. Start: 8:34 AM Stop: 8:34 AM Medication: Fentanyl Amount: 50 mcg Route: I.V. Start: 8:39 AM Stop: 8:39 AM Medication: Heparin Amount: 2000 units Route: I.V. I, the attending physician, have reviewed and verified all procedure medications. Yes, all medications given per verbal order History/Risk Factors Hypertension: Yes Dyslipidemia: Yes Peripheral Arterial Disease (PAD): No Myocardial Infarction (IA): No Obesity: No Renal Disease: No Tobacco Use: Current/Recent(w/in 1 year) Prior Interventions PCI: Yes CABG: No Valve Surgery: No Date of PCI: 11/04/2013 Report Signatures Finalized by Arnaldo Randhawa MD on 11/22/2023 10:33 AM
--- NOTE | 2023-11-22 09:15 | SUR.EXTENDED ---
Received the patient back from the microbiology laboratory manager via wheelchair s/p Diagnostic [facility]. Patient ambulated to the cot without difficulty. A & 0 x 3. panel monitor placed and vital signs obtained. TR band intact to the right wrist. No bleeding or hematoma noted. Palpable radial pulse. Family unavailable. Patient states that he will call his family on his won. No concerns voiced at this time. Will transfer to CSU when bed available.
--- NOTE | 2023-11-22 09:26 | SUR.EXTENDED ---
Dr. Randhawa at bedside with an update of the the [facility] findings. Patient with 3 vessel disease. Options given to him PCI versus CABG. Patient voiced he wished to proceed [facility] multi-vessel PCI. Per Dr. Randhawa, patient scheduled for known PCI 11/23/23 at 0830. Pre cath orders to be placed and right of way supervisor was notified by this nurse to place on the cah lab schedule.
--- NOTE | 2023-11-22 09:36 | P.PN_ITS ---
Subjective 2 Subjective: Patient underwent left heart catheterization noted to have multivessel disease including mid LAD, large bifurcating significant obtuse marginal which is a culprit vessel and mid high-grade RCA stenosis, ejection fraction was normal with moderately elevated LVEDP. Patient currently denies chest pain. Patient was given option for CABG, patient refused bypass surgery stating that he lives by himself and takes care of himself he would not like to consider. Patient clearly understand risk of benefit and alternative for the procedure. He would like to proceed with PCI. Vitals/I&O/Wt Last Vital Signs Temp 98.0 F 11/22/23 08:00 Pulse 69 11/22/23 08:00 Resp 20 H 11/22/23 08:00 BP 125/73 11/22/23 08:00 Pulse Ox 95 11/22/23 08:00 O2 Del Method Room Air 11/22/23 08:00 11/21/23 11/22/23 11/22/23 22:59 06:59 14:59 Intake Total 1680.867 / 2040.867 Balance 1680.867 / 2040.867 Weight last 48 hrs Weight 180 lb Weight 179 lb 8 oz Weight 189 lb Physical Exam 2 Const: COMMON NORMALS: alert OTHER: GENERAL: Patient is alert, awake and oriented x3. NECK: No jugular vein distension. HEENT: No cyanosis. No icterus. No pallor. HEART: Regular S1 and S2. No murmur, rub or gallop. LUNGS: Clear to auscultate bilaterally. ABDOMEN: Soft, nontender and nondistended. Positive bowel sounds. No guarding, rebound or tenderness. CENTRAL NERVOUS SYSTEM: Grossly nonfocal. EXTREMITIES: Lower extremities without edema bilaterally. Resp: COMMON NORMALS: clear to auscultation bilaterally AUSCULTATION: clear to auscultation bilaterally Neuro: SENSORIUM/ORIENTATION: Yes alert Data 11/22/23 02:53 11/22/23 02:53 A&P Assessment and plan (1) Elevated troponin I level: Elevated cardiac markers in a patient with prior history of multiple stents no with chest pain/heartburn which has increased in frequency and duration with possible suggestive of unstable angina however cannot rule out severe gastritis since patient is high risk for acute coronary syndrome and because of the fact he feels pretty sick and think his symptoms are similar to when he had his stents therefore we will proceed with left heart catheterization. For now continue beta-gerardo aspirin statin and heparin, add Protonix (2) Coronary artery disease: Multivessel coronary artery disease including mid LAD large obtuse marginal 1 and mid RCA. As above patient was given option of coronary artery bypass surgery patient refused and would like to proceed with PCI. He clearly understand risk-benefit and alternative for the procedure he would like to proceed with it. Will bring him back tomorrow morning for multivessel PCI. Continue aspirin statin beta-gerardo. Will load him with Brilinta tonight. Qualifiers: Coronary Disease-Associated Artery/Lesion type: [place] artery [place] vs. transplanted heart: [place] heart Associated angina: with unspecified form of angina Qualified Code(s): I25.119 - Atherosclerotic heart disease of [place] coronary artery with unspecified angina pectoris (3) Diabetes mellitus: Continue treatment as per medicine Attestations 2 Medical Necessity Statement*: Patient require continuation hospitalization for above defined care Coding Level of Care Code Acute Code for [facility] Diagnoses Elevated troponin I level R79.89 Coronary artery disease involving [place] coronary artery of [place] heart with angina pectoris I25.119 Coronary Disease-Associated Artery/Lesion type: [place] artery [place] vs. transplanted heart: [place] heart Associated angina: with unspecified form of angina Diabetes mellitus E11.9
--- NOTE | 2023-11-22 10:07 | PC.CHAP ---
Pastoral Care Encounter/Spiritual Assessment Type of Contact [] Declined content specialist visit [] Patient/Family/Request visit [] Outpatient visit [] Follow-up visit [] Physician referral [] Code/Alert [] Routine visit [] Staff referral [] Actively dying [] Patient sleeping [] Family support [] [x] Out of room [] Palliative care [] [] Receiving care in room [] Pre-surgical visit [] Trauma [] Long length of stay [] ICU visit [] Other: Relational/Emotional Strength [] Patient feels connected with others/family/visitors/staff [] Distress [] Loneliness/isolation [] Abandonment Spirituality of Patient [] Person of Michelle [] Attends Pentec[employer] of their Michelle [] Believes in Prayer [] Reads Bible or Yarsani materials [] There are Spiritual issues to be addressed [place] Interventions [] Prayer [] Active listening [] Non-anxious presence [] Spiritual/emotional support [] Crisis/trauma care [] Spiritual counseling [] Bereavement support [] Provided bereavement packet [] Provided Bible/devotional materials [] Provided toy/stuffed animal, coloring book to patient or family member [] Provided Communion [] Anointing/[place] [] Salvation [] Completed spiritual assessment [] Other: Impact on Illness or Injury [] Angry [] Fearful [] Anxious [] Often cries [] Exhaustion [] Unable to work [] Unable to attend gnosticist [] Unable to walk/stand [] Unable to read [] Unable to drive [] Unable to eat/drink [] Unable to sleep [] Unable to be with family [] Patient intubated [] Other: Summary Time spent with patient
--- NOTE | 2023-11-22 10:15 | SUR.EXTENDED ---
Letting the air out of the TR band per protocol.
--- NOTE | 2023-11-22 12:15 | SUR.EXTENDED ---
Report called to MADELEINE Archuleta. Patient transferred to [facility] via wheelchair.
--- NOTE | 2023-11-22 12:27 | P.PN_ITS ---
Subjective 2 Subjective: Underwent angiogram this morning. Three-vessel disease found. Patient is discussed with cardiology, and requested stenting instead of bypass. This will be done tomorrow. Medications: Reviewed: Yes Vitals/I&O/Wt Last Vital Signs Temp 98.0 F 11/22/23 08:00 Pulse 64 11/22/23 12:00 Resp 15 11/22/23 12:00 BP 143/86 11/22/23 12:00 Pulse Ox 98 11/22/23 12:00 O2 Del Method Room Air 11/22/23 12:00 11/21/23 11/22/23 11/22/23 22:59 06:59 14:59 Intake Total 1680.867 / 2040.867 Balance 1680.867 / 2040.867 Weight last 48 hrs Weight 81.647 kg Weight 81.42 kg Weight 85.729 kg Physical Exam 2 Narrative: General exam no distress currently Neck is supple no lymphadenopathy thyromegaly Cardiovascular regular rate and rhythm without murmur Lungs clear Abdomen is soft, nontender, no hepatosplenomegaly Extremities no sinus clubbing edema Right wrist with band on, no significant hematoma Data 11/22/23 02:53 11/22/23 02:53 A&P Assessment and plan (1) Atypical chest pain: Patient with somewhat atypical description of the pain, but concerned with increasing troponin. He still has some discomfort present. Cardiac etiology is certainly the most life-threatening concern. Continue aspirin Three-vessel disease seen on angiogram. Stenting arranged for tomorrow. Continue nitrates, statin, beta-gerardo Appreciate cardiology consult TSH checked and normal Echocardiogram demonstrates EF 55 to 60%, grade 1 diastolic dysfunction CBC, BMP tomorrow (2) Elevated troponin I level: See above. Troponins increased from previous ER visit (3) Diabetes mellitus: Sliding scale insulin Consistent carb diet when started (4) Coronary artery disease: Patient with history of coronary stenting in 2013 and 15 Continue statin, beta-gerardo, aspirin Qualifiers: Coronary Disease-Associated Artery/Lesion type: [place] artery [place] vs. transplanted heart: [place] heart Associated angina: with unspecified form of angina Qualified Code(s): I25.119 - Atherosclerotic heart disease of [place] coronary artery with unspecified angina pectoris Plan History of reflux with some atypical symptoms and a slightly elevated lipase. Repeat lipase. Initiate Protonix 40 mg every 12 hours. Full code Heparin will suffice for DVT prophylaxis along with SCDs Attestations 2 Medical Necessity Statement*: Needs continued hospitalization, for coronary stenting, planned for tomorrow. Diagnoses Atypical chest pain R07.89 Elevated troponin I level R79.89 Diabetes mellitus E11.9 Coronary artery disease involving [place] coronary artery of [place] heart with angina pectoris I25.119 Coronary Disease-Associated Artery/Lesion type: [place] artery [place] vs. transplanted heart: [place] heart Associated angina: with unspecified form of angina Time Spent (min) 23
[2023-11-22] MEDS: pantoprazole 40 mg SDV IVP ×2 (12:54→22:30)
[2023-11-22] MEDS: aspirin 325 mg EC Tablet PO (12:55)
[2023-11-22] MEDS: losartan 50 mg Tablet 25 MG PO (12:55)
[2023-11-22] MEDS: metoprolol tartrate 25 mg Tablet PO (12:56)
[2023-11-22] MEDS: ticagrelor 90 mg Tablet 180 MG PO (12:57)
[2023-11-22] MEDS: sodium chloride 0.9% 1,000 ML 100 ML IV (12:59)
[2023-11-22] MEDS: aspirin 325 mg Tablet PO (13:43)
[2023-11-22 16:49] LABS: Glucose Point of Care 194 mg/dL (70-110)
[2023-11-22] MEDS: insulin lispro 100 unit/1 mL SUBCUT (17:50)
[2023-11-22 20:49] LABS: Glucose Point of Care 201 mg/dL (70-110)
[2023-11-22] MEDS: atorvastatin 40 mg Tablet PO (21:07)
[2023-11-23] VITALS (60 sets, daily range): BP systolic 128–181; BP diastolic 77–103; PULSE 54–80; RESP 7–23; TEMP 36.4–36.9; O2SAT 94–99
[2023-11-23 04:21] LABS: Basophils % 0.6 %; Eosinophils # 0.5 10^3/uL (0.0-0.8); Eosinophils % 6.6 %; Hematocrit 38.5 % (37-53); Lymphocytes # 1.4 10^3/uL (0.8-4.8); Lymphocytes % 19.6 %; Mean Corpuscular HGB Conc 33.8 g/dL (30-55); Mean Corpuscular Hemoglobin 31.6 pg (27-33); Mean Corpuscular Volume 93.7 fl (82-101); Mean Platelet Volume 8.7 fL (7.4-10.4); Monocytes # 0.7 10^3/uL (0.2-0.9); Monocytes % 9.5 %; Neutrophils % 63.3 %; Nucleated Red Blood Cells % 0 %; Platelet Count 259 10^3/cmm (157-399); Red Blood Count 4.11 10^6/uL (3.85-5.65); Red Cell Distribution Width 12.5 % (12.1-15.1); White Blood Count 6.95 10^3/uL (3.29-11.43)
[2023-11-23] MEDS: sodium chloride 0.9% 1,000 ML 50 ML IV (04:34)
[2023-11-23 04:52] LABS: Anion Gap 15.3 (5-19); Blood Urea Nitrogen 16 mg/dL (8-23); Calcium 8.5 mg/dL (8.5-10.5); Carbon Dioxide 24 mmol/L (22-29); Chloride 104 mmol/L (98-107); Creatinine Clr Calc Pharmacy 83.9571; Glucose 169 mg/dL (65-115); Osmolality Calculated 293 mOsm/kg (285-295); Potassium 4.3 mmol/L (3.5-5.1); Sodium 139 mmol/L (136-145)
[2023-11-23 06:23] LABS: Glucose Point of Care 174 mg/dL (70-110)
[2023-11-23] MEDS: metoprolol tartrate 25 mg Tablet PO (09:18)
[2023-11-23] MEDS: losartan 50 mg Tablet 25 MG PO (09:18)
--- NOTE | 2023-11-23 10:28 | P.PN_ITS ---
Subjective 2 Subjective: Willis was awaiting his angiogram when I saw him. He was eager to get it over with. No chest discomfort overnight. Medications: Reviewed: Yes Vitals/I&O/Wt Last Vital Signs Temp 98.5 F 11/23/23 07:54 Pulse 74 11/23/23 07:54 Resp 17 11/23/23 07:54 BP 135/80 11/23/23 09:18 Pulse Ox 95 11/23/23 07:54 O2 Del Method Room Air 11/23/23 07:54 11/22/23 11/23/23 11/23/23 22:59 06:59 14:59 Intake Total 600 / 1960 1240 / 3200 Output Total 600 / 600 Balance 0 / 1360 1240 / 2600 Weight last 48 hrs Weight 80.739 kg Weight 81.647 kg Weight 81.42 kg Physical Exam 2 Narrative: General exam no distress currently Neck is supple no lymphadenopathy thyromegaly Cardiovascular regular rate and rhythm without murmur Lungs clear Abdomen is soft, nontender, no hepatosplenomegaly Extremities no sinus clubbing edema Right wrist with no significant hematoma Data 11/23/23 03:40 11/23/23 03:40 A&P Assessment and plan (1) Atypical chest pain: Patient with somewhat atypical description of the pain, but concerned with increasing troponin. He still has some discomfort present. Cardiac etiology is certainly the most life-threatening concern. Continue aspirin Three-vessel disease seen on angiogram. Stenting planned for today based upon patient's decision Continue nitrates, statin, beta-gerardo Appreciate cardiology consult TSH checked and normal Echocardiogram demonstrates EF 55 to 60%, grade 1 diastolic dysfunction CBC, BMP tomorrow (2) Elevated troponin I level: See above. Troponins increased from previous ER visit (3) Diabetes mellitus: Sliding scale insulin Consistent carb diet when started (4) Coronary artery disease: Patient with history of coronary stenting in 2013 and 15 Continue statin, beta-gerardo, aspirin Qualifiers: Coronary Disease-Associated Artery/Lesion type: [place] artery [place] vs. transplanted heart: [place] heart Associated angina: with unspecified form of angina Qualified Code(s): I25.119 - Atherosclerotic heart disease of [place] coronary artery with unspecified angina pectoris Plan History of reflux with some atypical symptoms and a slightly elevated lipase. Repeat lipase. Initiate Protonix 40 mg every 12 hours. Full code Heparin will suffice for DVT prophylaxis along with SCDs Attestations 2 Medical Necessity Statement*: Needs continued hospitalization for definitive care of coronary artery disease with angiogram and stenting planned today. Diagnoses Atypical chest pain R07.89 Elevated troponin I level R79.89 Diabetes mellitus E11.9 Coronary artery disease involving [place] coronary artery of [place] heart with angina pectoris I25.119 Coronary Disease-Associated Artery/Lesion type: [place] artery [place] vs. transplanted heart: [place] heart Associated angina: with unspecified form of angina Time Spent (min) 19
[2023-11-23] MEDS: aspirin 325 mg EC Tablet PO (11:31)
[2023-11-23] MEDS: pantoprazole 40 mg SDV IVP (11:31)
[2023-11-23] MEDS: diphenhydrAMINE 50 mg Capsule PO (11:31)
[2023-11-23 12:01] LABS: Glucose Point of Care 150 mg/dL (70-110)
--- NOTE | 2023-11-23 13:51 | W.PM.OPSUD ---
Surgery/Procedure H&P Update DATE OF PROCEDURE: November 23, 2023 DATE H&P PERFORMED: 11/22/23 PREOP DIAGNOSIS: Chest pain suspicious for unstable angina, CAD PRIMARY INDICATION FOR PROCEDURE: Multivessel coronary disease patient refused CABG. PLANNED PROCEDURE: Operation Date: 11/22/23 09:15 Proposed Procedures p Cardiac Catheterization(Left) - Arnaldo Randhawa MD Operation Date: 11/23/23 12:00 Proposed Procedures p Cardiac Catheterization(Left) - Arnaldo Randhawa MD PATIENT REASSESSED PRIOR TO SEDATION, WITH NO CHANGE NOTED: Yes PHYSICAL EXAM: alert, oriented x 3, clear to auscultation bilaterally, regular rate & rhythm and operative site marked AIRWAY EVAL/ANESTHESIA PLAN: normal airway, ASA II, Risks, benefits & alternatives of sedation and/or procedure discussed and Patient agrees to continue as planned ADDITIONAL INFORMATION: Aamirtti2
[2023-11-23 17:06] LABS: Glucose Point of Care 121 mg/dL (70-110)
[2023-11-23] MEDS: sodium chloride 0.9% 1,000 ML 100 ML IV (17:23)
[2023-11-23] MEDS: ticagrelor 90 mg Tablet PO (17:23)
[2023-11-23 18:22] LABS: Partial Thromboplastin Time > 250.0 SECONDS (23.9-36.7)
[2023-11-23 20:16] LABS: Glucose Point of Care 295 mg/dL (70-110)
[2023-11-23 22:00] LABS: Partial Thromboplastin Time 52.1 SECONDS (23.9-36.7)
--- NOTE | 2023-11-23 22:08 | PC.NURSE ---
Patient pTT came back at 52.1. Dr Randhawa was notified and gave order to pull sheath.
[2023-11-24 02:48] LABS: Glucose Point of Care 135 mg/dL (70-110)
[2023-11-24 04:31] VITALS: BP 147/87; PULSE 67; RESP 18; TEMP 37; O2SAT 96
--- NOTE | 2023-11-24 04:31 | PC.NURSE ---
Patient sheath was pulled at 2230. pressure was held for 20 minutes. No bleeding, no hematoma. site bandage dry and intact.
[2023-11-24 04:56] LABS: Basophils # 0.1 10^3/uL (0.0-0.1); Basophils % 0.6 %; Eosinophils # 0.3 10^3/uL (0.0-0.8); Eosinophils % 4.3 %; Hematocrit 38.5 % (37-53); Lymphocytes # 1.3 10^3/uL (0.8-4.8); Lymphocytes % 16.9 %; Mean Corpuscular Hemoglobin 32.3 pg (27-33); Mean Corpuscular Volume 95.1 fl (82-101); Mean Platelet Volume 8.8 fL (7.4-10.4); Monocytes # 0.7 10^3/uL (0.2-0.9); Monocytes % 8.7 %; Neutrophils # 5.48 10^3/uL (1.8-7.7); Nucleated Red Blood Cells % 0 %; Platelet Count 256 10^3/cmm (157-399); Red Blood Count 4.05 10^6/uL (3.85-5.65); Red Cell Distribution Width 12.5 % (12.1-15.1); White Blood Count 7.94 10^3/uL (3.29-11.43)
[2023-11-24 05:23] LABS: Anion Gap 15.2 (5-19); Blood Urea Nitrogen 13 mg/dL (8-23); Calcium 8.8 mg/dL (8.5-10.5); Carbon Dioxide 24 mmol/L (22-29); Chloride 103 mmol/L (98-107); Creatinine Clr Calc Pharmacy 92.8653; Glomerular Filtration Rate 84.7 mL/min (90-130); Glucose 128 mg/dL (65-115); Osmolality Calculated 288 mOsm/kg (285-295); Potassium 4.2 mmol/L (3.5-5.1); Sodium 138 mmol/L (136-145)
[2023-11-24 06:00] VITALS: PULSE 0
[2023-11-24 06:27] LABS: Glucose Point of Care 148 mg/dL (70-110)
[2023-11-24 07:55] VITALS: BP 149/83; PULSE 71; RESP 17; TEMP 36.7; O2SAT 96
[2023-11-24] MEDS: ticagrelor 90 mg Tablet PO (10:17)
[2023-11-24] MEDS: pantoprazole 40 mg SDV IVP (10:17)
[2023-11-24] MEDS: aspirin 325 mg EC Tablet PO (10:24)
[2023-11-24] MEDS: metoprolol tartrate 25 mg Tablet PO (10:24)
[2023-11-24 10:27] VITALS: BP 121/75
[2023-11-24] MEDS: losartan 50 mg Tablet 25 MG PO (10:27)
[2023-11-24 11:18] LABS: Glucose Point of Care 376 mg/dL (70-110)
[2023-11-24 11:26] LABS: Glucose Point of Care 375 mg/dL (70-110)
--- NOTE | 2023-11-24 11:47 | PM.PN ---
Subjective Subjective: No overnight event. Patient underwent PCI of mid RCA with 2 drug-eluting stent, mid circumflex to obtuse marginal 1x 1 stent and mid LAD x 1 stent after refusing CABG. Continues to do fine denies any chest pain he is walking around today without any difficulty. Medications: Reviewed: Yes Vitals/I&O/Wt Last Vital Signs Temp 98.1 F 11/24/23 07:55 Pulse 71 11/24/23 07:55 Resp 17 11/24/23 07:55 BP 121/75 11/24/23 10:27 Pulse Ox 96 11/24/23 07:55 O2 Del Method Room Air 11/24/23 07:55 11/23/23 11/24/23 11/24/23 22:59 06:59 14:59 Intake Total 480 / 480 1360 / 1840 120 / 120 Output Total 750 / 750 Balance -270 / -270 1360 / 1090 120 / 120 Weight last 48 hrs Weight 186 lb 11.704 oz Weight 178 lb Physical Exam Const: COMMON NORMALS: alert OTHER: GENERAL: Alert awake oriented x3. NECK: No jugular vein distension. HEENT: No cyanosis. No icterus. No pallor. HEART: Regular S1 and S2. No murmur, rub or gallop. LUNGS: Clear to auscultate bilaterally. CENTRAL NERVOUS SYSTEM: Grossly nonfocal. EXTREMITIES: Lower extremities without edema bilaterally. Resp: COMMON NORMALS: clear to auscultation bilaterally AUSCULTATION: clear to auscultation bilaterally Neuro: SENSORIUM/ORIENTATION: Yes alert Data 11/24/23 03:44 11/24/23 03:44 A&P Assessment and plan (1) Elevated troponin I level: Status post PCI to RCA mid circumflex and mid LAD doing fine from a cardiovascular perspective continue aspirin and statin Brilinta metoprolol. Patient has been explained in detail necessity of sticking with Brilinta however if for economical reason he thinks it is too expensive he should let us know and we will switch him to clopidogrel. (2) Coronary artery disease: As above patient is status post PCI doing fine he can be discharged home follow-up with Ms. Aysha Donahue in [address] Randhawa in 1 month. Patient is status post PCI: Patient can return to work after 1 week, he can be released but admits Aysha Godfrey for work once she sees him and agrees to it. In general I think he may can return to work after 1 week. Qualifiers: Coronary Disease-Associated Artery/Lesion type: [place] artery [place] vs. transplanted heart: [place] heart Associated angina: with unspecified form of angina Qualified Code(s): I25.119 - Atherosclerotic heart disease of [place] coronary artery with unspecified angina pectoris (3) Diabetes mellitus: Continue treatment as per medicine Attestations Medical Necessity Statement*: Patient will be discharged home from cardiovascular perspective Coding Level of Care Code Acute Code for [facility] Fwd Diagnoses Elevated troponin I level R79.89 Coronary artery disease involving [place] coronary artery of [place] heart with angina pectoris I25.119 Coronary Disease-Associated Artery/Lesion type: [place] artery [place] vs. transplanted heart: [place] heart Associated angina: with unspecified form of angina Diabetes mellitus E11.9
[2023-11-24 12:15] VITALS: BP 123/75; PULSE 80; RESP 18; TEMP 36.7; O2SAT 94
[2023-11-24] MEDS: insulin lispro 100 unit/1 mL SUBCUT (12:16)
--- NOTE | 2023-11-24 14:37 | P.DS_ITS ---
Discharge Providers Date of Admission: 11/22/23 09:17 Date of Discharge: November 24, 2023 Attending Provider at Admission: Tj Isbell MD Attending Provider at Discharge: Chevy Shelton DO Consults: Dr. Arnaldo Randhawa, Cardiology Primary Care Provider: Jose Luis Jimenez DO Diagnoses at Discharge Discharge Diagnosis (1) Elevated troponin I level: Status: Acute (2) Coronary artery disease: Status: Acute Qualifiers: Coronary Disease-Associated Artery/Lesion type: [place] artery [place] vs. transplanted heart: [place] heart Associated angina: with unspecified form of angina Qualified Code(s): I25.119 - Atherosclerotic heart disease of [place] coronary artery with unspecified angina pectoris (3) Diabetes mellitus: Status: Acute Reason for Visit Reason for Visit: chest burning and discomfort Hospital Course Hospital Course Admitted from emergency room with complaint of chest pain, found to have elevated troponins. He was placed in the cardiac stepdown unit and cardiology was consulted. An echocardiogram was performed and patient was taken for coronary stenting, and stent was placed mid circumflex and mid LAD. Patient declined CABG. He was started on Brilinta. His chest pain resolved and he was also restarted on atorvastatin and metoprolol. His sugars were initially elevated at his admission. At home he was taking glipizide and metformin. His medications were held until he had completed his procedures. He was discharged in stable and improved condition. Physical Exam Narrative: General: Cooperative patient in no apparent distress. Well developed. HEENT: Normocephalic, Atraumatic. External ears normal. Nasal passages patent without drainage. MMM. Heart: RRR. Resp: LCTA. No respiratory distress, no use of accessory muscles. Abd: Soft, non-tender. Non-distended. Extremities: No edema. Skin: No rash or lesions on exposed areas. 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 echo complete* [id number] Routine Ultrasound 11/21/23 11:14 Completed Pending at discharge Category Date Time Status GAMING DEALER request for service Routine Exams 11/23/23 10:58 Taken Radiology Impressions Chest X-Ray 11/21/23 06:25 IMPRESSION: No acute abnormality. Laboratory Results WBC 7.94 10^3/uL (3.29-11.43) 11/24/23 03:44 RBC 4.05 10^6/uL (3.85-5.65) 11/24/23 03:44 Hgb 13.10 g/dL (11.27-16.99) 11/24/23 03:44 Hct 38.5 % (37-53) 11/24/23 03:44 MCV 95.1 fl (82-101) 11/24/23 03:44 MCH 32.3 pg (27-33) 11/24/23 03:44 MCHC 34.0 g/dL (30-55) 11/24/23 03:44 RDW 12.5 % (12.1-15.1) 11/24/23 03:44 Plt Count 256 10^3/cmm (157-399) 11/24/23 03:44 MPV 8.8 fL (7.4-10.4) 11/24/23 03:44 Neut % (Auto) 69.0 % 11/24/23 03:44 Lymph % (Auto) 16.9 % 11/24/23 03:44 [place] % (Auto) 8.7 % 11/24/23 03:44 Eos % (Auto) 4.3 % 11/24/23 03:44 Baso % (Auto) 0.6 % 11/24/23 03:44 Neut # (Auto) 5.48 10^3/uL (1.8-7.7) 11/24/23 03:44 Lymph # (Auto) 1.3 10^3/uL (0.8-4.8) 11/24/23 03:44 [place] # (Auto) 0.7 10^3/uL (0.2-0.9) 11/24/23 03:44 Eos # (Auto) 0.3 10^3/uL (0.0-0.8) 11/24/23 03:44 Baso # (Auto) 0.1 10^3/uL (0.0-0.1) 11/24/23 03:44 Nucleated RBC % (auto) 0 % 11/24/23 03:44 Nucleated RBCs # 0.0 /100WBC 11/24/23 03:44 APTT 52.1 SECONDS (23.9-36.7) H D 11/23/23 21:33 Sodium 138 mmol/L (136-145) 11/24/23 03:44 Potassium 4.2 mmol/L (3.5-5.1) 11/24/23 03:44 Chloride 103 mmol/L (98-107) 11/24/23 03:44 Carbon Dioxide 24 mmol/L (22-29) 11/24/23 03:44 Anion Gap 15.2 (5-19) 11/24/23 03:44 BUN 13 mg/dL (8-23) 11/24/23 03:44 Creatinine 0.9 mg/dL (0.7-1.2) 11/24/23 03:44 GFR Calculation 84.7 mL/min (90-130) L 11/24/23 03:44 Glucose 128 mg/dL (65-115) H 11/24/23 03:44 POC Glucose 375 mg/dL (70-110) H 11/24/23 11:23 Calculated Osmolality 288 mOsm/kg (285-295) 11/24/23 03:44 Calcium 8.8 mg/dL (8.5-10.5) 11/24/23 03:44 Magnesium 1.9 mg/dL (1.7-2.3) 11/22/23 02:53 Total Bilirubin 0.2 mg/dL (0.15-1.2) 11/22/23 02:53 AST 19 U/L (0-40) 11/22/23 02:53 ALT 10 U/L (0-41) 11/22/23 02:53 Alkaline Phosphatase 69 U/L (40-130) 11/22/23 02:53 Troponin T Baseline 39 ng/L (0-15) H 11/21/23 06:30 Troponin T 120 Minute 43.35 ng/L (0-15) H 11/21/23 08:13 Delta Troponin T 4.35 ABS# (0-10) 11/21/23 08:13 Troponin T Hi Sens 6Hr 49.97 ng/L (0-15) H 11/21/23 13:20 Troponin T Hi Sens 6Hr Delta 10.97 ng/L (0-12) 11/21/23 13:20 Total Protein 5.6 g/dL (6.6-8.7) L D 11/22/23 02:53 Albumin 3.7 g/dL (3.5-5.2) 11/22/23 02:53 Globulin 1.9 g/dL (1.3-4.6) 11/22/23 02:53 Lipase 53 U/L (13-60) 11/21/23 06:30 TSH 0.97 uIU/mL (0.27-4.20) 11/21/23 06:30 Vitals Last Vital Signs Temp 98.0 F 11/24/23 12:15 Pulse 80 11/24/23 12:15 Resp 18 11/24/23 12:15 BP 123/75 11/24/23 12:15 Pulse Ox 94 11/24/23 12:15 O2 Del Method Room Air 11/24/23 12:15 Discharge Plan Discharge Patient Disposition: Home Condition: Stable Prescriptions: New Brilinta 90 mg Tablet 90 mg PO BID Qty: 60 2RF Continued pantoprazole [Protonix] 40 mg tablet,delayed release (DR/EC) 40 mg PO DAILY Qty: 60 0RF atorvastatin 40 mg tablet 40 mg PO BEDTIME glipizide 5 mg tablet extended release 24hr 5 mg PO DAILY metformin 1,000 mg tablet 1,000 mg PO BID losartan 25 mg tablet 25 mg PO DAILY metoprolol tartrate 25 mg tablet 25 mg PO DAILY Discharge Orders: Discharge Order (Routine); Ordered 11/24/23 Ordered By: Chevy Shelton Referrals: Aysha Donahue FNP [Nurse Practitioner] - 11/28/23 4:00 pm (Follow up appointment for post cath care, 11/27 16:00. if you cant keep this appointment please call the clinic to reschedule.) Jose Luis Jimenez DO [Primary Care Provider] - Discharge Diet: Cardiac Discharge Activity: Resume usual activity Patient Instructions: Coronary Angioplasty (DC), Opioid Safety Discharge Attestations Time Spent in Discharge Care*: less than 30 min Specific Discharge Activities: educating patient, educating and/or supporting family/caregiver, discussing with pcp/other providers, documenting/other paperwork and evaluating patient/reviewing data Status at Discharge: Cognitive status at discharge: cognitively intact , Behavioral status at discharge: cooperative , Functional status at discharge: independent ambulation , Overall status at discharge: patient is back to baseline Quality Metrics Clinical Quality Measures [ No reported AMI, CVA or VTE this stay] Coding Level of Care Code Acute Code for [facility] Total time (in minutes) for Discharge: 28 Diagnoses Elevated troponin I level R79.89 Coronary artery disease involving [place] coronary artery of [place] heart with angina pectoris I25.119 Coronary Disease-Associated Artery/Lesion type: [place] artery [place] vs. transplanted heart: [place] heart Associated angina: with unspecified form of angina Diabetes mellitus E11.9
[2023-11-24 15:55] VITALS: BP 123/75; PULSE 80; RESP 18; TEMP 36.7; O2SAT 94
--- NOTE | 2023-11-24 16:18 | PC.NURSE ---
discharge instructions given and explained.pt verb understanding of instructions.brilinta supplied by [employer] to beds.discharged via w/c to exit at this time.niece to drive pt home.
== END 2023-11-24 16:22 | disposition home or self-care (01) | DRG 321 ==
LOC: ER 08:44 → MEDSURG 09:43 → CSU 11-22 22:11
PROVIDERS: Internal Medicine Cardiovascular Disease; Admitting Provider Internal Medicine; Emergency Provider Family Medicine; PCP Internal Medicine; Visit Provider Family Medicine
PROC: B2111ZZ Fluoroscopy of Multiple Coronary Arteries using Low Osmolar Contrast (ICD-10-PCS; principal; 2023-11-22 09:15)
PROC: 027237Z Dilation of Coronary Artery, Three Arteries with Four or More Drug-eluting Intraluminal Devices, Percutaneous Approach (ICD-10-PCS; principal; 2023-11-23 12:00)
DX: I25.110 Atherosclerotic heart disease of native coronary artery with unstable angina pectoris (principal); F17.200 Nicotine dependence, unspecified, uncomplicated; I10 Essential (primary) hypertension; K21.9 Gastro-esophageal reflux disease without esophagitis; E78.5 Hyperlipidemia, unspecified; E11.9 Type 2 diabetes mellitus without complications; Z85.528 Personal history of other malignant neoplasm of kidney; Z90.5 Acquired absence of kidney
CPT/HCPCS: 36415; 36416; 71045; 80048; 80053; 82962; 83690; 83735; 84443; 84484; 85025; 85347; 85730; 92920; 93005; 93306; 93458; 93571; 96372; 96374; 96375; 99152; 99153; C1725; C1769; C1874; C1887; C1894; C9600; C9601; G0378; J1200; J1644; J1815; J2250; J2470; J3010; J3490; J7030; Q0163; Q9967

== ENCOUNTER → 2023-11-28 16:31 | Outpatient (BNVA) | payer OTHER, SELFPAY | PROVIDERS: PCP Internal Medicine; Visit Provider Nurse Practitioner Family | DX: I25.119 Atherosclerotic heart disease of native coronary artery with unspecified angina pectoris (principal) | CPT/HCPCS: 36415; 80048 ==

== ENCOUNTER 2023-12-27 18:59 | Emergency (ER) | payer OTHER, SELFPAY ==
[2023-12-27 19:20] VITALS: BP 131/77; PULSE 77; RESP 16; TEMP 36.7; O2SAT 98
--- NOTE | 2023-12-27 22:21 | W.ED.SKABFB ---
HPI - Skin/Abscess/Foreign Bdy General: Chief complaint: Skin/Abscess/Foreign Body Stated complaint: Swelling and rash from knees down Time Seen by Provider: 12/27/23 21:01 History of Present Illness: Patient presents to the ER with a red rash and swelling to his bilateral legs for his knees down. He states been going on for 3 to 4 days. Says it stings and itches. Patient states he applied Benadryl on it last night and it does not help at all. Patient just darted Melissa approximately a month ago for a new stent by Dr. Harkins patient never had these problems before. Related Data Home Medications Medication Instructions Recorded Confirmed atorvastatin 40 mg tablet 40 mg PO BEDTIME 11/21/23 11/28/23 glipizide 5 mg tablet, extended 5 mg PO DAILY 11/21/23 11/28/23 release 24 hr losartan 25 mg tablet 25 mg PO DAILY 11/21/23 11/28/23 metformin 1,000 mg tablet 1,000 mg PO BID 11/21/23 11/28/23 metoprolol tartrate 25 mg tablet 25 mg PO DAILY 11/21/23 11/28/23 Previous Rx's Medication Instructions Recorded pantoprazole 40 mg tablet,delayed 40 mg PO DAILY #60 tabs 11/20/23 release (Protonix) aspirin 81 mg tablet,delayed 81 mg PO DAILY #90 tabs 11/24/23 release clopidogrel 75 mg tablet (Plavix) 75 mg PO DAILY #30 tabs 12/27/23 Allergies Allergy/AdvReac Type Severity Reaction Status Date / Time codeine Allergy ALGY-Hives Verified 12/27/23 19:26 Penicillins Allergy Unknown Verified 12/27/23 19:26 Review of Systems General: Reports: 10 or more systems reviewed and unremarkable except in HPI and below PFSH ED PFSH: Medical History Hypertension GERD (gastroesophageal reflux disease) Hyperlipidemia Coronary artery disease Surgical History History of coronary angioplasty with insertion of stent Family History Other Diabetes Hypertension Social History Smoking and tobacco/nicotine status: former use of tobacco/nicotine Alcohol intake: current Alcohol intake frequency: 0-2 Drinks per Day Physical Exam Const: COMMON NORMALS: no acute distress, average body habitus, patient oriented x3, no limitations, healthy appearing, alert and well nourished HENMT: COMMON NORMALS: normocephalic, atraumatic, hearing grossly normal bilaterally, external ears normal, Normal external nose present and moist oral mucous membranes HEAD & SCALP: normocephalic and atraumatic NOSE: Normal external nose present EXTERNAL EAR: Yes external ears normal Neck/C-Spine: COMMON NORMALS: no JVD Chest: COMMONS NORMALS: normal inspection of the chest and normal palpation of entire chest wall Resp: COMMON NORMALS: normal respiratory effort, No retractions, No use of accessory muscles and clear to auscultation bilaterally AUSCULTATION: clear to auscultation bilaterally Cardio: COMMON NORMALS: no JVD, regular rate, regular rhythm, S1 normal heart sound present, S2 normal heart sound present, No gallops present (Cardio), No clicks present (Cardio), No murmurs present (Cardio) and No rub (Cardio) RATE: regular rate RHYTHM: regular rhythm HEART SOUNDS: S1 normal heart sound present and S2 normal heart sound present GI: COMMON NORMALS: Normal to inspection, nondistended, normoactive bowel sounds present, Soft to palpation, non-tender, No hepatosplenomegaly present and no masses PALPATION: Yes Soft to palpation and Yes No hepatosplenomegaly present Neuro: COMMON NORMALS: patient oriented x3 SENSORIUM/ORIENTATION: Yes alert Course Vital Signs: Vital signs: Vital Signs Temperature 98.0 F 12/27/23 19:20 Pulse Rate 77 12/27/23 19:20 Respiratory Rate 16 12/27/23 19:20 Blood Pressure 131/77 12/27/23 19:20 Pulse Oximetry 98 12/27/23 19:20 Oxygen Delivery Me thod Room Air 12/27/23 19:20 MDM - Skin/Abscess/Foreign Bdy Medicial Decision Making Patient has a nonblanching petechial type rash to his bilateral lower extremities from the knees down. Upon review of Dr. Harkins's record he will allow us to switch him over from Brilinta to Plavix as needed. We will send the prescription for Plavix to the pharmacy and have him call Dr. Harkins's office in the morning. Medical Records I reviewed the patient's medical records. Lab Data I reviewed the patient's lab results. No radiology studies performed this visit Discharge Plan Discharge Patient Disposition: Home Clinical Impression: Petechial rash Condition: Stable Prescriptions: New clopidogrel [Plavix] 75 mg tablet 75 mg PO DAILY Qty: 30 0RF Discontinued Brilinta 90 mg Tablet 90 mg PO BID Qty: 60 2RF No Action pantoprazole [Protonix] 40 mg tablet,delayed release (DR/EC) 40 mg PO DAILY Qty: 60 0RF atorvastatin 40 mg tablet 40 mg PO BEDTIME glipizide 5 mg tablet extended release 24hr 5 mg PO DAILY metformin 1,000 mg tablet 1,000 mg PO BID losartan 25 mg tablet 25 mg PO DAILY metoprolol tartrate 25 mg tablet 25 mg PO DAILY aspirin 81 mg Tablet,Delayed Release (Dr/Ec) 81 mg PO DAILY Qty: 90 0RF Discharge Orders: Discharge ED (Routine); Ordered 12/27/23 Ordered By: Yomi Taylor Referrals: Jose Luis Jimenez DO [Primary Care Provider] - 1 week Patient Instructions: Purpura (ED) Activity Restrictions/Additional Instructions: It appears the rash in your legs is purpura and petechiae, I feel this is due to your starting of the Brilinta and having your blood leak at your blood vessels onto the skin surface. I reviewed Dr. Harkins's cardiology note and he said we can foreign exchange services manager to Plavix. A prescription for Plavix has been called into your pharmacy. Please notify Dr. Harkins's office tomorrow morning of this change and adverse effect. Coding Level of Care Code ED Vp for Martina Ramirez
[2023-12-27 22:57] VITALS: BP 139/79; PULSE 65; RESP 16; O2SAT 99
== END 2023-12-27 23:00 | disposition home or self-care (01) ==
PROVIDERS: Emergency Provider Emergency Medicine; PCP Internal Medicine
DX: R23.3 Spontaneous ecchymoses (principal); Z79.82 Long term (current) use of aspirin; Z79.84 Long term (current) use of oral hypoglycemic drugs; I10 Essential (primary) hypertension; E78.5 Hyperlipidemia, unspecified; I25.10 Atherosclerotic heart disease of native coronary artery without angina pectoris; Z95.5 Presence of coronary angioplasty implant and graft; Z87.891 Personal history of nicotine dependence
CPT/HCPCS: 99283

== ENCOUNTER → 2024-04-23 08:31 | Outpatient (BNVA) | payer MEDICARE, OTHER, SELFPAY | PROVIDERS: PCP Family Medicine; Visit Provider Family Medicine | DX: E11.9 Type 2 diabetes mellitus without complications (principal) | CPT/HCPCS: 80053; 80061; 82607; 83036; 84443 ==

== ENCOUNTER → 2024-07-21 08:17 | Outpatient (BNVA) | payer MEDICARE, OTHER, SELFPAY | PROVIDERS: PCP Family Medicine; Visit Provider Family Medicine | DX: E11.9 Type 2 diabetes mellitus without complications (principal) | CPT/HCPCS: 80048; 83036 ==

== ENCOUNTER → 2024-08-22 09:35 | Outpatient (BNVA) | payer MEDICARE, OTHER, SELFPAY | PROVIDERS: PCP Family Medicine; Visit Provider Internal Medicine Cardiovascular Disease | DX: I25.10 Atherosclerotic heart disease of native coronary artery without angina pectoris (principal); I10 Essential (primary) hypertension; E78.5 Hyperlipidemia, unspecified; Z79.02 Long term (current) use of antithrombotics/antiplatelets; Z79.82 Long term (current) use of aspirin; Z95.5 Presence of coronary angioplasty implant and graft; Z87.891 Personal history of nicotine dependence | CPT/HCPCS: 99214 ==

== ENCOUNTER 2024-11-22 11:12 | Emergency (ER) | payer MEDICARE, OTHER, SELFPAY ==
--- OUTSIDE RECORDS SUMMARY | 2024-11-22 11:17 | XMS_ITS | Clinical Summary ---
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 Name Role Phone Unavailable Primary Care Provider Unavailabl e Allergies Active Allergy Reactions Criticality Noted Date Comments Codeine Rash,Nausea and Vomiting High 06/30/2019 Penicillins Rash,Nausea and Vomiting High 06/30/2019 Medications glipiZIDE (GLUCOTROL XL) 5 mg Extended Release 24 hour tablet 0 Active ALPRAZolam (XANAX) 0.5 mg disintegrating tablet DISSOLVE 1 TABLET UNDER THE TONGUE THREE TIMES DAILY NEEDED FOR ANXIETY 0 Active metFORMIN (GLUCOPHAGE) 1,000 mg tablet 0 Active atorvastatin (LIPITOR) 40 mg tablet TAKE 1 TABLET BY MOUTH EVERY DAY AT BEDTIME 0 Active metoprolol tartrate (LOPRESSOR) 25 mg tablet 12.5 mg 2 times daily. 0 Active aspirin (ECOTRIN EC) 81 mg Tablet, Delayed Release (E.C.) Take 81 mg by mouth daily. 0 Active Social History Tobacco Use Types Packs/Day Years Used Date Smoking Tobacco: Some Days Smokeless Tobacco: Former Sex and Gender Information Value Date Recorded Sex Assigned at Not on file Legal Sex Male 10:00 PM [employer] ENTRY Gender Identity Not on file Sexual Orientation Not on file Last Filed Vital Signs Vital Sign Reading Time Taken Comments Blood Pressure 130/87 08/25/2019 10:40 AM CDT Pulse 77 08/25/2019 10:40 AM CDT Temperature - - Respiratory Rate - - Oxygen Saturation - - Inhaled Oxygen Concentration - - Weight 88.5 kg (195 lb) 08/25/2019 10:40 AM CDT Height 185.4 cm (6' 1 ) 08/25/2019 10:40 AM CDT Body Mass Index 25.73 08/25/2019 10:40 AM CDT Plan of Treatment Health Maintenance Due Date Last Done Comments DTAP/TDAP/TD VACCINES (1 - Tdap) 1977 COLORECTAL SCREENING 2003 Colorectal Cancer Screening 2003 FIT-DNA Q 3 years 2003 FIT/FOBT Q 1 year 2003 Flex Sig/CT Colonography Q 5 years 2003 PNEUMOCOCCAL VACCINE 50+ YEARS (1 of 1 - PCV) 04/06/19 09 ZOSTER VACCINE (1 of 2) 2008 INFLUENZA VACCINE (#1) 2024 RSV VACCINE (60+ or ) (1 - 1-dose 75+ series) 2033
--- OUTSIDE RECORDS SUMMARY | 2024-11-22 11:17 | XMS_ITS | Clinical Summary ---
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 0 Active glipiZIDE (GLUCOTROL XL) 5 mg Extended Release 24 hour tablet 0 Active atorvastatin (LIPITOR) 40 mg tablet TAKE 1 TABLET BY MOUTH EVERY DAY AT BEDTIME 0 Active aspirin (ECOTRIN EC) 81 mg Tablet, Delayed Release (E.C.) Take 81 mg by mouth daily. Active Active Problems No known active problems Social History Tobacco Use Types Packs/Day Years Used Date Smoking Tobacco: Some Days Smokeless Tobacco: Former Sex and Gender Information Value Date Recorded Sex Assigned at Not on file Legal Sex Male 9:18 AM CDT Gender Identity Not on file Sexual Orientation [...] Comments DTAP/TDAP/TD VACCINES (1 - Tdap) 1977 PNEUMOCOCCAL VACCINE 50+ YEARS (1 of 2 - PCV) 04/06/18 78 COLORECTAL SCREENING 2003 Colorectal Cancer Screening 2003 FIT-DNA Q 3 years 2003 FIT/FOBT Q 1 year 2003 Flex Sig/CT Colonography Q 5 years 2003 ZOSTER VACCINE (1 of 2) 2008 INFLUENZA VACCINE (#1) 2024 RSV VACCINE (60+ or ) (1 - 1-dose 75+ series) 2033 Insurance WORKERS COMP
--- OUTSIDE RECORDS SUMMARY | 2024-11-22 11:17 | XMS_ITS | Encounter Summary ---
Author Organization [facility] Address [address] [place] [address] Care Team Providers Care Right Of Way Manager Name Role Phone Unavailable Primary Care Provider Unavailabl e Encounter Details Date Type Department Care Team (Late st Contact Info) Description 06/30/2019 Ancillary Orders [facility] Orthopedics [facility] [address] [place] [address] [facility], External Provider [address] [place], [place] [id number] Pain Social History Tobacco Use Types Packs/Day Years Used Date Smoking Tobacco: Some Days Smokeless Tobacco: Former Sex and Gender Information Value Date Recorded Sex Assigned at Not on file Legal Sex Male 9:18 AM CDT Gender Identity Not on file Sexual Orientation Not on file COVID-19 Exposure Response Date Recorded In the last month, have you been in contact with someone who was confirmed or suspected to have Coronavirus / COVID-19? No / Unsure 06/30/2019 9:25 AM CDT documented as of this encounter Plan of Treatment Not on file documented as of this encounter Results * XR PRIOR STUDY (06/26/2019 12:00 PM CDT) Narrative 06/30/2019 9:38 AM CDT This exam was auto finalized to allow images to be scanned to PACS. External Provider [facility] DIAGNOSTIC IMAGING ORDERAB LES Final Result documented in this encounter Visit Diagnoses Diagnosis Pain Generalized pain Pain Generalized pain documented in this encounter
[2024-11-22 11:29] VITALS: BP 138/88; PULSE 96; RESP 16; TEMP 36.8; O2SAT 96; BMI 24.5
--- NOTE | 2024-11-22 12:06 | XRR_ITS ---
PROCEDURE INFORMATION: Exam: XR Right Foot Exam date and time: 11/22/2024 12:07 PM Age: 64 years old Clinical indication: Pain; Toes; Right; Additional info: RT foot pain; Swelling/erythema to RT 2nd digit; No known injury; Diabetic neuropathy. TECHNIQUE: Imaging protocol: Radiologic exam of the right foot. Views: 3 or more views. COMPARISON: No relevant prior studies available. FINDINGS: Bones/joints: Mild hallux valgus deformity. Bones are diffusely osteopenic. 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 Mild osteoarthritis at the 1st interphalangeal joint. No acute fracture. Soft tissues: Visible soft tissues are unremarkable. XR/XR foot RT min 3V* [id number] IMPRESSION: No acute findings.
--- NOTE | 2024-11-22 12:08 | ED_ITS ---
HPI - Extremity Problem General: Chief complaint: Extremity Problem,Nontraumatic Stated complaint: rt foot to inj Time Seen by Provider: 11/22/24 12:01 Source: patient Mode of arrival: ambulatory Limitations: no limitations History of Present Illness: Patient is a six 4-year-old male with history diabetes who presents emerged department planing of right second toe pain. States he noticed a sore like lesion a couple of days ago and has only gotten worse, he has been applying topical antibiotic ointment without much relief. Notes a sore to the medial aspect of the second toe, but also redness to the dorsum and swelling that does not extend into the foot. No red streaking reported. No fevers, chills, nauseous vomiting, or any systemic symptoms reported. No history of previous diabetic ulcers, he does not see podiatry regularly and states his last A1c was 7.7. States blood sugar has been running okay at home. No other symptoms of concern. Denies any direct trauma. MD Complaint: extremity pain Onset (ago): day(s) Pain Consistency: constant Location: right and toe Radiation: none Associated symptoms: Deny chest pain, fever(s) or rash Context: other (diabetic) Related Data Previous Rx's ?Medication ?Instructions ?Recorded aspirin 81 mg tablet,delayed 81 mg PO DAILY #90 tabs 0 11/24/23 release atorvastatin 40 mg tablet 40 mg PO BEDTIME #90 tabs clopidogrel 75 mg tablet (Plavix) 75 mg PO DAILY #90 t abs 07/21/24 glipizide 5 mg tablet, extended 5 mg PO DAILY #90 tabs 07/21/24 release 24 hr losartan 25 mg tablet 25 mg PO DAILY #90 tabs 0508/10 metformin 1,000 mg tablet 1,000 mg PO BID #180 tabs metoprolol tartrate 25 mg tablet 12.5 mg (1/2 x 25 mg) PO BID #180 07/21/24 tabs cephalexin 500 mg capsule 500 mg PO Q6H 10 days #40 ca ps 11/22/24 doxycycline hyclate 100 mg tablet 100 mg PO BID 10 day s #20 tabs 11/22/24 Allergies Allergy/AdvReac Type Severity Reaction Status Date / Time codeine Allergy ALGY-Hives Verified 08/22/24 10:05 Penicillins Allergy Unknown Verified 08/22/24 10:05 ticagrelor (From Brilinta) Allergy rash, Verified 08/22/24 10:05 bleeding Review of Systems General: Reports: 10 or more systems reviewed and unremarkable except in HPI and below Const: Denies: fever(s) or chills Card: Denies: chest pain Resp: Denies: dyspnea or productive cough GI: Denies: abdominal pain, nausea, vomiting or diarrhea : Denies: flank pain Musc: Reports: extremity pain (right second toe) and extremity swelling (right second toe); Denies: neck pain, back pain, joint pain, joint swelling, joint redness, joint warmth, limited range of motion or muscle weakness Skin/Breast: Reports: new lesions (right second toe); Denies: rash Neuro: Denies: headache(s), numbness in extremities or weakness in extremities PFSH ED PFSH: Medical History Diabetes mellitus Simple hepatic cyst Fatty infiltration of liver Gout Hepatomegaly Hypertension Hyperlipidemia Coronary artery disease Surgical History History of arthroscopy of right knee History of left nephrectomy History of appendectomy History of right inguinal hernia repair History of coronary angioplasty with insertion of stent Family History Brother Skin cancer melanoma Father Dementia Mother Diabetes mellitus, type 2 Other Diabetes Hypertension Social History Smoking and tobacco/nicotine status: never used tobacco/nicotine Quit status (tobacco/nicotine): has quit using Alcohol intake: former Substance/Drug Use: never Lives independently: Yes Household members: none Number of children: 5 Number of grandchildren: 10 service: Yes branch: [employer] Current occupational status: retired Leisure activites: hunting and fishing Michelle/Synagogue: [employer] Special michelle needs: No Agree to transfusion: Yes Physical Exam Const: COMMON NORMALS: no acute distress, patient oriented x3, no limitations, healthy appearing, alert and well nourished OTHER: nontoxic appearing HENMT: COMMON NORMALS: normocephalic and atraumatic HEAD & SCALP: normocephalic and atraumatic Neck/C-Spine: COMMON NORMALS: full ROM, supple and no meningeal signs Resp: COMMON NORMALS: normal respiratory effort and No use of accessory muscles Extremity: COMMON NORMALS: full ROM, capillary refill normal and no joint enlargement NARRATIVE EXTREMITY EXAM: Mild fusiform swelling to right second toe, where there is erythema to the dorsum. There is a very superficial ulcerated/macerated lesion to medial aspect, with no active oozing or drainage. Sensations are intact distally. DP/PT pulses present in the foot. No red streaking. Neuro: COMMON NORMALS: patient oriented x3, moves all extremities, no focal motor deficits and no sensory deficits noted SENSORIUM/ORIENTATION: Yes alert MENINGEAL SIGNS: Yes no meningeal signs Course Vital Signs: Vital signs: Vital Signs Temperature 98.3 F 11/22/24 11:29 Pulse Rate 96 11/22/24 11:29 Respiratory Rate 16 11/22/24 11:29 Blood Pressure 118/71 11/22/24 12:12 Pulse Oximetry 92 11/22/24 12:12 Oxygen Delivery Me thod Room Air 11/22/24 11:29 MDM - Extremity (Nontraumatic) Medical Decision Making Patient presenting with concerns of redness and swelling to right second toe, he is diabetic. On exam with to be a superficial macerated/ulcerated lesion to medial aspect of the right second toe with some mild erythema to the dorsum, but he had good sensations and there was no red streaking or concerns for systemic infection. An x-ray does not show any osseous findings of concern, and I do have low concern that he has been dressing the wound and appropriately and keeping it moist, which was causing the maceration. For this he is given education on mild soap and water but then keeping the wound dry and avoiding any abrasive shoes, and we will start him on dual therapy doxycycline and Keflex. I also refer him to podiatry as he does not regularly see 1 despite being diabetic, and though he is stable for discharge at this time did give him strict return precautions for any signs or symptoms of systemic illness. Patient agreed to this plan, med sent to pharmacy. XR interpretation done by ED provider, pending radiology final review ED provider radiology interpretation(s): No osseous abnormality on x-ray right foot. Discharge Plan Discharge Patient Disposition: Home Clinical Impression: Cellulitis of second toe Qualifiers: Laterality: right Qualified Code(s): L03.031 - Cellulitis of right toe Condition: Stable Prescriptions: New cephalexin 500 mg capsule 500 mg PO Q6H 10 Days Qty: 40 0RF doxycycline hyclate 100 mg tablet 100 mg PO BID 10 Days Qty: 20 0RF No Action atorvastatin 40 mg tablet 40 mg PO BEDTIME Qty: 90 3RF clopidogrel [Plavix] 75 mg tablet 75 mg PO DAILY Qty: 90 1RF glipizide 5 mg tablet extended release 24hr 5 mg PO DAILY Qty: 90 3RF losartan 25 mg tablet 25 mg PO DAILY Qty: 90 3RF metformin 1,000 mg tablet 1,000 mg PO BID Qty: 180 3RF metoprolol tartrate 25 mg tablet 12.5 mg PO BID Qty: 180 3RF aspirin 81 mg Tablet,Delayed Release (Dr/Ec) 81 mg PO DAILY Qty: 90 0RF Discharge Orders: Discharge ED (Routine); Ordered 11/22/24 Ordered By: Yehuda Mckinley Referrals: Lauren Krueger MD [Primary Care Provider, [facility]] Patient Instructions: Patient Portal & Edgar Instructions Activity Restrictions/Additional Instructions: Diabetic Foot Wound Discharge Diagnosis: Diabetes-related soft tissue infection of the right second toe, without radiographic evidence of osteomyelitis. Antibiotic Therapy: - Initiate doxycycline and cephalexin at standard dosing for soft tissue infection. The Infectious Diseases Society of [place] recommends a 1?2 week course for diabetic foot soft tissue infections, with extension up to 3?4 weeks if improvement is slow or if there is severe peripheral arterial disease. Reassess if infection persists beyond 4 weeks.[1] https://Cen[employer].com/rosas/article-lookup/doi/10.1093/rosas/twdl386 [2] https://pubmed.ncbi.nlm.nih.gov/22673615 Wound Care Instructions: - Keep the wound clean and dry: - Cleanse the wound daily with saline or mild soap and water. Avoid soaking the foot, as excess moisture can cause maceration and delay healing.[3] https://jamanetwork.com/journals/gurvinder/fullarticle/10.1001/gurvinder.2023.16245?utm_so urce=openevidence&utm_medium=referral [4] https://diabetesjournals.org/care/article-lookup/doi/10.2337/id70-H770 - After cleaning, gently pat the area dry. Ensure the skin between the toes is thoroughly dried. - Apply a sterile, non-adherent dressing. Change the dressing at least once daily or if it becomes wet or soiled. - Avoid occlusive or overly moist dressings, as maceration was previously noted and may have contributed to delayed healing.[3] https://jamanetwork.com/journa ls/gurvinder/fullarticle/10.1001/gurvinder.2023.74136?utm_source=openevidence&utm_medium=r eferral [4] https://diabetesjournals.org/care/article-lookup/doi/10.2337/ap92-B536 - Monitor for signs of maceration: - Look for whitening, softening, or breakdown of the skin around the wound. If these occur, increase the frequency of dressing changes and ensure the area remains dry. Off-loading and Activity: - Minimize weight-bearing on the affected foot to reduce mechanical stress and promote healing. Use off-loading devices as recommended by podiatry.[3] https://jamanetwork.femeninas/journals/gurvinder/fullarticle/10.1001/gurvinder.2023.63335?utm_so urce=openevidence&utm_medium=referral [4] https://diabetesjournals.org/care/article-lookup/doi/10.2337/yc44-Y116 - Avoid walking barefoot. Glycemic Control: - Maintain optimal blood glucose control, as hyperglycemia impairs wound healing and increases infection risk.[5] https://www.ncbi.nlm.nih.gov/pmc/articles/TCP83168516/ Follow-up and Referral: - A referral to podiatry has been placed for ongoing wound care, off-loading a ssessment, and consideration of debridement if indicated.[3] https://jamanetwork.femeninas/journals/gurvinder/fullarticle/10.1001/gurvinder.2023.83620?utm_so urce=openevidence&utm_medium=referral [4] https: //diabetesjournals.org/care/article-lookup/doi/10.2337/ho33-S299 - If the wound fails to show a reduction in size by 50% after 4 weeks of appropriate management, consider advanced wound therapies in consultation with podiatry.[4] https://diabetesjournals.org/care/article-lookup/doi/10.2337/ku64-R915 Strict Return Precautions: - Return immediately for any of the following: - Increasing redness, swelling, warmth, or pain at the wound site - New or worsening drainage, foul odor, or discoloration - Signs of systemic infection: fever, chills, malaise - Blackening or necrosis of the toe or surrounding tissue - Inability to bear weight due to pain or swelling - Any new numbness, tingling, or loss of function in the foot Additional Instructions: - Do not trim calluses or toenails yourself; defer to podiatry. - Inspect feet daily for new wounds, blisters, or changes in skin color. Contact Information: - For urgent concerns, contact the clinic or present to the emergency department. Summary: This regimen is consistent with the IDSA/IWGDF guidelines and the [place] Diabetes Association Standards of Care, emphasizing infection control, wound hygiene, off-loading, and multidisciplinary follow-up.[1] https://Cenify.[employer]/rosas/article-lookup/doi/10.1093/rosas/maop723 [3] https://jamanetwork.com/journals/gurvinder/fullarticle/10.1001/gurvinder.2023.93151?utm_so urce=openevidence&utm_medium=referral [4] https://diabetesjournals.org/care/article-lookup/doi/10.2337/vl70-C571 [5] https://www.ncbi.nlm.nih.gov/pmc/articles/BNR83446826/ References * IWGDF/IDSA Guidelines on the Diagnosis and Treatment of Diabetes-Related Foot Infections (IWGDF/IDSA 2022) https://[place]/rosas/article- lookup/doi/10.1093/rosas/lbvk286 . Vinay ?, Enio Solis, caryn Abrams SA, et al. Clinical Infectious Diseases : An Official Publication of the Infectious Diseases Society of [place]. 2022;:mtpq182. doi:10.1093/rosas/foon882. * Diabetes-Related Foot Infections: Diagnosis and Treatment https://pubmed.ncbi.nlm.nih.gov/87703545 . Brian EM, Flakito SW, Raul RS. [place] Family Physician. 2020;104(4):386-394. * Diabetic Foot Ulcers: A Review https://jamanetwork.com/journals/gurvinder/ fullarticle/10.1001/gurvinder.2023.79560?utm_source=openevidence&utm_medium=referra l . Rubi NUNEZ, Artem TW, Roslyn ALONSOM, Jeaneth SA. GURVINDER. 2022;330(1):62-75. doi:10.1001/gurvinder.2023.92980. * 12. Retinopathy, Neuropathy, and Foot Care: Standards of Care in Diabetes-2024 https://diabetesjournals.org/care/article-lookup/doi/10.2337/st18-S743 . Diabetes Care. 2024;48(Supplement_1):L617-I437. doi:10.2337/wg13-Z955. * Current Status and Principles for the Treatment and Prevention of Diabetic Foot Ulcers in the Cardiovascular Patient Population: A Scientific Statement From the [place] Heart Association https://www.ncbi.nlm.nih.gov/pmc/articles/MBC67299998/ . Blanca KA, Nicko SANDERS, Rubi NUNEZ, et al. Circulation. 2023;149(4):x502-h131. doi:10.1161/CIR.6488546959406939. Print Language: Bahraini Coding Level of Care Code ED Occupational Therapy Professor for Martina Ramirez
[2024-11-22 12:12] VITALS: BP 118/71; O2SAT 92
--- NOTE | 2024-11-22 12:16 | PC.NURSE ---
glucose 142 via FS
[2024-11-22 12:41] VITALS: BP 118/83; PULSE 80; O2SAT 97
--- NOTE | 2024-11-24 08:56 | DCPLANNER ---
messaged podiatry for er f/u
== END 2024-11-22 12:44 | disposition home or self-care (01) ==
PROVIDERS: Emergency Provider Physician Assistant; PCP Family Medicine
DX: L03.031 Cellulitis of right toe (principal); Z79.02 Long term (current) use of antithrombotics/antiplatelets; Z79.84 Long term (current) use of oral hypoglycemic drugs; Z79.82 Long term (current) use of aspirin; E11.9 Type 2 diabetes mellitus without complications; E78.5 Hyperlipidemia, unspecified; I10 Essential (primary) hypertension; I25.10 Atherosclerotic heart disease of native coronary artery without angina pectoris
CPT/HCPCS: 73630; 99283

== ENCOUNTER → 2024-11-26 14:19 | Outpatient (BNVA) | payer MEDICARE, OTHER, SELFPAY | PROVIDERS: PCP Family Medicine; Visit Provider Podiatrist Foot & Ankle Surgery | DX: E11.40 Type 2 diabetes mellitus with diabetic neuropathy, unspecified (principal); L60.3 Nail dystrophy; E11.621 Type 2 diabetes mellitus with foot ulcer; L97.512 Non-pressure chronic ulcer of other part of right foot with fat layer exposed; L84 Corns and callosities; Z79.84 Long term (current) use of oral hypoglycemic drugs | CPT/HCPCS: 11055; 99204 ==

== ENCOUNTER → 2024-12-10 06:42 | Outpatient (BNVA) | payer MEDICARE, OTHER, SELFPAY | PROVIDERS: PCP Family Medicine; Visit Provider Podiatrist Foot & Ankle Surgery | DX: L60.3 Nail dystrophy (principal); E11.40 Type 2 diabetes mellitus with diabetic neuropathy, unspecified; Z79.84 Long term (current) use of oral hypoglycemic drugs | CPT/HCPCS: 99213 ==

== ENCOUNTER → 2025-01-21 08:35 | Outpatient (BNVA) | payer MEDICARE, SELFPAY | PROVIDERS: PCP Family Medicine; Visit Provider Family Medicine | DX: I25.119 Atherosclerotic heart disease of native coronary artery with unspecified angina pectoris (principal); E11.9 Type 2 diabetes mellitus without complications; E78.5 Hyperlipidemia, unspecified; I10 Essential (primary) hypertension; E11.40 Type 2 diabetes mellitus with diabetic neuropathy, unspecified | CPT/HCPCS: 80053; 80061; 83036 ==

== ENCOUNTER → 2025-03-06 10:22 | Outpatient (BNVA) | payer MEDICARE, SELFPAY | PROVIDERS: PCP Family Medicine; Visit Provider Family Medicine | DX: R39.9 Unspecified symptoms and signs involving the genitourinary system (principal); R30.0 Dysuria | CPT/HCPCS: 81000; 87086 ==